=== PATIENT | female | born 1960 | race Caucasian/White ===

== ENCOUNTER 2021-07-22 07:57 | Emergency (ER) | payer MEDICARE, SELFPAY ==
[2021-07-22 09:04] VITALS: BP 126/62; PULSE 81; RESP 16; TEMP 36.4; O2SAT 98; BMI 35.1
--- NOTE | 2021-07-22 09:21 | ED.EYEPROB ---
HPI - Eye Problem General Chief complaint: Eye Problems Stated complaint: Eye swelling Time Seen by Provider: 07/22/21 09:17 Source: patient Mode of arrival: ambulatory Limitations: no limitations History of Present Illness HPI Narrative: 61-year-old female presenting to the ED with complaints of right eyelid redness/swelling/ itchiness for the past 4 days worse today. She reports that she is unsure how she sustained this. She does not wear any contact lenses. She denies any trauma to the eye. She denies anyone else that she knows with similar symptoms. She denies any fevers, chills, dizziness, changes in vision, photophobia, thoughts of foreign body, drainage, pain to the eye or any other symptoms complaints or concerns at this time. chief complaint: eye redness Onset (ago): day(s) (4) Onset description: gradual Duration: constant and progressively worsening Location: right eye Eye Symptoms: redness and itching Place: home Mechanism: none Severity: mild Associated symptoms: none Treatments Prior to Arrival: none Related Data Previous Rx's Medication Instructions Recorded doxycycline monohydrate 100 mg 100 mg PO BID 10 Days #20 cap 07/22/21 capsule erythromycin 5 mg/gram (0.5 %) eye 0.5 inch OPHTHALMIC (EYE) QID 7 07/22/21 ointment Days #3.5 g Allergies Allergy/AdvReac Type Severity Reaction Status Date / Time zolpidem [From Ambien] Allergy Hives Verified 07/22/21 09:03 Review of Systems Review of Systems: Constitutional : No fevers, no chills, No changes in activity, No lethargy, No recent prior head injury, No agitation, No increased fussiness ENT/Mouth : No Ear Pain, No Nasal discharge/drainage Eyes: + Right eyelid swelling /redness / itching, No Vision changes/blurry/decreased vision, No Eye Pain, No Foreign Body, No Photophobia, no discharge, no drainage, no contact lens uses, no recent welding, no bleeding Cardiovascular : No Chest Pain, No SOB Respiratory : No Cough Gastrointestinal : No Nausea, No Vomiting, No abdominal Pain Genitourinary : No Dysuria, No Urinary Frequency, No Urinary Incontinence, No Urgency, No Flank Pain Musculoskeletal : No joint pain, No neck stiffness, No back pain/injury Skin : No lacerations Neuro : No unsteady gait, No Paresthesias, No Loss of Consciousness, No altered mental status, No dizziness, No Headache Denies past medical history of HIV, recent trauma, coagulopathy, recent spinal/ epidural procedure, new medication, URI symptoms, close contacts with similar symptoms, tick bite, or known CO2 exposure. Yes all other systems are reviewed and are negative PMFSH Past Medical History Attestation statement: The following information was validated with the patient. Medical History Bipolar 1 disorder Hypothyroidism Surgical History S/P excision of lipoma Social History Social History Advance Directives: No Advance Directives Information Provided: No Patient : No Physical Exam Vital Signs: Vital Signs: Last Vital Signs Temp 97.6 F 07/22/21 09:04 Pulse 81 07/22/21 09:04 Resp 16 07/22/21 09:04 BP 126/62 07/22/21 09:04 Pulse Ox 98 07/22/21 09:04 BMI result Body Mass Index 35.1 vital signs have been reviewed as normal and appeared to be correct. Blood pressure normal. Heart rate normal. Respiration rate normal. Temperature normal. Oxygen saturation normal. Appearance: Alert. Oriented X3. No acute distress. Head: Normal external exam. Normocephalic. Atraumatic. No Pavon signs noted. No raccoon eyes noted Eyes: PERRLA. EOMI. Conjunctiva are normal. Cornea are normal. Funduscopic exam within normal limits. Sclera normal. left eyelid within normal limits. Right eyelid upper and lower edematous / erythematous consistent with blepharitis. No discharge is noted. No papilledema noted. Anterior chamber normal. No photophobia noted. Not consistent with periorbital cellulitis. Not consistent with orbital cellulitis. ENT: EAC normal. TM's Normal. Pharynx normal. Uvula midline. Moist mucous membranes. Neck: Normal inspection. Neck supple. FROM. No adenopathy. Thyroid Normal. No meningeal signs. No neck mass noted. CVS: Normal heart rate and rhythm. Heart sound normal. No murmurs noted. Pulses normal throughout. Respiratory: No respiratory distress. Painless inspiration. Breath sounds normal. Back: Full range of motion noted. Skin: Skin warm and dry. Normal skin color. Normal skin turgor. No rashes/lesions/lacerations noted. Extremities: No lower extremity edema. Extremities exhibit normal range of motion. Extremities nontender. Neuro: Oriented X 3. No motor deficit. No sensory deficit. Reflexes normal. Course Course Course Narrative: 61-year-old female presenting to the ED with complaints of right eyelid redness/swelling/ itchiness for the past 4 days worse today. She reports that she is unsure how she sustained this. She does not wear any contact lenses. She denies any trauma to the eye. She denies anyone else that she knows with similar symptoms. She denies any fevers, chills, dizziness, changes in vision, photophobia, thoughts of foreign body, drainage, pain to the eye or any other symptoms complaints or concerns at this time. On exam patient is noted to have blepharitis to the right upper and lower eyelid. No signs of trauma. No signs of extraocular movement entrapment. No pain on extraocular movement. Not consistent with periorbital cellulitis. Not consistent with orbital cellulitis. Will DC home with antibiotics and instructions to follow-up with Dr. Vargas the numerical control machine machinist and to return if any new or worsening symptoms and to follow up with primary care provider as well. Patient understands agrees with this plan. MDM - Eye Problem Medical Records Attestation: I reviewed the patient's medical records. Discharge Plan Discharge Clinical Impression: Blepharitis of eyelid of right eye Patient Disposition: Home, Self-Care Instructions: Blepharitis (ED) Prescriptions: New erythromycin 5 mg/gram (0.5 %) ointment 0.5 inch ophthalmic (eye) QID 7 Days Qty: 3.5 0RF doxycycline monohydrate 100 mg capsule 100 mg PO BID 10 Days Qty: 20 0RF Referrals: Stef Vargas [Physician] - 2 days Print Language: Russian
== END 2021-07-22 09:39 | disposition home or self-care (01) ==
PROVIDERS: Emergency Provider Student in an Organized Health Care Education/Training Program
DX: H01.00A Unspecified blepharitis right eye, upper and lower eyelids (principal)
CPT/HCPCS: 99283

== ENCOUNTER 2022-01-14 09:50 | Outpatient (REF) | payer OTHER, SELFPAY ==
[2022-01-14 11:09] LABS: MANUAL DIFF FLAG NO
[2022-01-14 11:17] LABS: Basophils Absolute Auto 0.1 X10*3/uL (0.0-0.2); Basophils Percent Auto 0.9 % (0-2); Eosinophils Absolute Auto 0.2 X10*3/uL (0.0-0.4); Eosinophils Percent Auto 2.8 % (0-4); Hematocrit 41.4 % (37.0-47.0); Hemoglobin 13.7 g/dl (12.0-16.0); Imm Gran Abs Auto 0.02 X10*3/uL (0.00-0.03); Imm Gran Pct Auto 0.3 % (0.0-0.4); Lymphocytes Absolute Auto 2.4 X10*3/uL (1.2-4.9); Lymphocytes Percent Auto 40.5 % (20-40); Mean Corpuscular HGB Conc 33.1 g/dl (31.0-35.0); Mean Corpuscular Hemoglobin 29.1 pg (27.0-33.0); Mean Corpuscular Volume 88.1 fL (80.0-98.0); Mean Platelet Volume 11.1 fL (9.4-12.3); Monocytes Absolute Auto 0.5 X10*3/uL (0.1-1.2); Monocytes Percent Auto 8.3 % (2-11); Neutrophils Absolute Auto 2.7 x10*3/uL (2.0-8.3); Neutrophils Percent Auto 47.2 % (45-73); Platelet Count 238 X10*3/uL (160-400); White Blood Count 5.8 X10*3/uL (4.8-10.8)
[2022-01-14 12:02] LABS: Alanine Aminotransferase 32 U/L (0-31); Albumin Level 4.6 g/dL (3.5-5.0); Alkaline Phosphatase 118 U/L (39-117); Anion Gap 15 (12-20); Aspartate Amino Transferase 22 U/L (5-31); Bilirubin Total 0.2 mg/dL (0.0-1.0); Blood Urea Nitrogen 17 mg/dL (9-16); Calcium 9.5 mg/dL (8.4-10.2); Carbon Dioxide 26 mmol/L (22-29); Chloride 103 mmol/L (96-108); Cholesterol 255 mg/dL; Estimated Glomerular Filt Rate > 60; Glucose Fasting 94 mg/dL (60-99); HDL Cholesterol 66 mg/dL; LDL Cholesterol Calculated 155 mg/dl; Potassium 4.3 mmol/L (3.3-5.1); Sodium 140 mmol/L (135-145); Total Protein 7.6 g/dL (6.5-8.0); Triglycerides 174 mg/dL
[2022-01-14 12:27] LABS: Free T4 (Free Thyroxine) 0.84 ng/dL (0.71-1.85); Thyroid Stimulating Hormone 2.54 uIU/mL (0.32-4.0)
[2022-01-14 12:58] LABS: Carbamazepine Tegretol 8.9 mcg/mL (5.0-12.0)
[2022-01-15 13:06] LABS: Triiodothyronine T3 Total 72 ng/dL (76-181)
== END 2022-01-14 09:51 | disposition home or self-care (01) ==
LOC: HO.WFDLDS 09:50
PROVIDERS: Visit Provider Family Medicine
DX: Z00.00 Encounter for general adult medical examination without abnormal findings (principal); E55.9 Vitamin D deficiency, unspecified; E03.9 Hypothyroidism, unspecified; F31.9 Bipolar disorder, unspecified
CPT/HCPCS: 36415; 80053; 80061; 80156; 82306; 84439; 84443; 84480; 85025

== ENCOUNTER 2022-04-21 13:19 | Outpatient (REF) | payer OTHER, SELFPAY ==
--- NOTE | ~2022-04-21 | MM_ITS ---
EXAMINATION: MM SCREENING DIGITAL BREAST TOMOSYNTHESIS, BILATERAL CLINICAL INFORMATION: Screening. Asymptomatic. The lifetime risk of breast cancer based on the Tyrer-Cuzick Model is 8.5%. COMPARISON: Mammography: March 22, 2020 TECHNIQUE: Digital breast tomosynthesis is performed in both the craniocaudal and mediolateral oblique views along with computer-aided detection (CAD). Synthesized 2D images are generated from the tomosynthesis. FINDINGS: There are scattered areas of fibroglandular density (ACR BI-RADS breast composition Category b). There are no significant masses, abnormal calcifications, or other abnormalities. There is stable nodular densities present. MM/MM tomosynthesis screening BI IMPRESSION: No significant changes from prior exam. ASSESSMENT: BI-RADS 1: Negative RECOMMENDATION: Routine annual mammography screening. This patient's information was entered into a reminder system with a target due date for their next mammogram.
--- NOTE | ~2022-04-21 | MM_ITS ---
EXAMINATION: BONE DENSITOMETRY CLINICAL INDICATION: Encounter for screening for osteoporosis. COMPARISON: None (current study represents initial baseline exam). TECHNIQUE: Using a [employer] DXA System (software version: 13.1) manufactured by [employer], dual-energy x-ray absorptiometry was performed of the lumbar spine and left hip. The images are of good technical quality. Summary results are attached. FINDINGS: AP SPINE L1-L4: BMD 1.046 g/cm2, Z-score -0.8, T-score -1.1, osteopenia. LEFT FEMUR, NECK: BMD 0.905 g/cm2, Z-score -0.3, T-score -1.0, normal. LEFT FEMUR, TOTAL: BMD 1.011 g/cm2, Z-score 0.3, T-score 0.0, normal. IDENTIFIED RISK FACTORS: Menopause, history of fracture (adult). HISTORY OF FRACTURE: Forearm. MEDICATIONS: Calcium supplements or multivitamin, vitamin D. MM/XR DEXA axial skeleton IMPRESSION: 1. DIAGNOSIS: Osteopenia based on the lowest T-score value of -1.1 in the lumbar spine applying World Health Organization criteria. 2. 10-YEAR FRACTURE RISK PREDICTION, FRAX: Major osteoporotic fracture (clinical spine, forearm, hip or shoulder) 11.0%. Hip fracture 0.6%. 3. Treatment Recommendations: NOF guidelines recommend consideration for treatment in postmenopausal women and men age 50 and older presenting with the following: -A hip or vertebral (clinical or morphometric) fracture. -T-score less than or equal to -2.5 at the femoral neck or spine after appropriate evaluation to exclude secondary causes. -Low bone mass at the hip or spine and a 10-year fracture probability by FRAX of greater than or equal to 3% for hip fracture or greater than or equal to 20% for major osteoporotic fracture based on the [place] adapted WHO algorithm. 4. Other Recommendations: All treatment decisions require clinical judgment and consideration of individual patient factors, including patient preferences, comorbidities, previous drug use, risk factors not captured in the FRAX model (e.g. frailty, falls, vitamin D deficiency, increased bone turnover, interval significant decline in bone density) and possible under or overestimation of fracture risk by FRAX. Additional medical evaluation for secondary cause of low bone mineral density may be appropriate. FUTURE SCAN RECOMMENDATION: People with diagnosed cases of osteoporosis or at high risk for fracture should have regular bone mineral density tests. For patients eligible for Medicare, routine testing is allowed once every 2 years. The testing frequency can be increased to one year for patients who have rapidly progressing disease, those who are receiving or discontinuing medical therapy to restore bone mass, or have additional risk factors.
== END 2022-04-21 13:20 | disposition home or self-care (01) ==
LOC: HO.MAMMO 13:19
PROVIDERS: PCP Family Medicine; Visit Provider Family Medicine
DX: Z12.31 Encounter for screening mammogram for malignant neoplasm of breast (principal); Z13.820 Encounter for screening for osteoporosis; Z78.0 Asymptomatic menopausal state
CPT/HCPCS: 77063; 77067; 77080

== ENCOUNTER 2022-06-24 08:26 | Outpatient (REF) | payer OTHER, SELFPAY ==
[2022-06-24 12:20] LABS: Alanine Aminotransferase 31 U/L (0-31); Albumin Level 4.4 g/dL (3.5-5.0); Alkaline Phosphatase 125 U/L (39-117); Anion Gap 15 (12-20); Aspartate Amino Transferase 22 U/L (5-31); Bilirubin Total 0.4 mg/dL (0.0-1.0); Blood Urea Nitrogen 15 mg/dL (9-16); Calcium 9.5 mg/dL (8.4-10.2); Carbon Dioxide 26 mmol/L (22-29); Chloride 105 mmol/L (96-108); Cholesterol 244 mg/dL; Estimated Glomerular Filt Rate > 60; Glucose Random 88 mg/dL (60-115); HDL Cholesterol 70 mg/dL; LDL Cholesterol Calculated 150 mg/dl; Potassium 4.1 mmol/L (3.3-5.1); Sodium 142 mmol/L (135-145); Total Protein 7.2 g/dL (6.5-8.0); Triglycerides 122 mg/dL
[2022-06-24 13:50] LABS: Free T4 (Free Thyroxine) 0.75 ng/dL (0.71-1.85); Thyroid Stimulating Hormone 3.35 uIU/mL (0.32-4.0); Vitamin D 25-OH Total 28.5 ng/mL (>30)
[2022-06-25 05:09] LABS: Triiodothyronine T3 Total 77 ng/dL (76-181)
== END 2022-06-24 08:27 | disposition home or self-care (01) ==
LOC: HO.WFDLDS 08:26
PROVIDERS: Visit Provider Family Medicine
DX: Z00.00 Encounter for general adult medical examination without abnormal findings (principal); E03.9 Hypothyroidism, unspecified; R74.01 Elevation of levels of liver transaminase levels; E78.5 Hyperlipidemia, unspecified; E55.9 Vitamin D deficiency, unspecified
CPT/HCPCS: 36415; 80053; 80061; 82306; 84439; 84443; 84480

== ENCOUNTER 2022-11-27 11:32 | Outpatient (AMB) | payer OTHER, SELFPAY ==
--- NOTE | 2022-11-27 11:37 | MHC.PC.OV ---
Vital Signs 11/27/22 11:40 Height 5 ft 2 in Weight 202 lb 1 oz BMI 37.0 BP 120/74 Blood Pressure Location Lt brachial Position Sitting Pulse 78 Pulse Source Pulse Oximeter Pulse Oximetry (%) 98 Oxygen Delivery Method Room Air Intake Visit Reasons: f/u chronic conditions Intake Note: Patient is here for a follow up visit on choric conditions. Allergies zolpidem [From Ambien] Allergy (Verified 11/27/22 11:41) Hives Medication List - Last Reconciled 11/27/22 by George Vázquez MD bupropion HCl 300 mg PO DAILY PRN bupropion HCl 150 mg PO QAM carbamazepine ER 0 mg PO DAILY PRN carbamazepine ER 400 mg PO BID cholecalciferol (vitamin D3) 50 mcg PO DAILY erythromycin 0.5 inches ophthalmic (eye) TID 7 days levothyroxine 88 mcg PO DAILY 90 days venlafaxine ER 225 mg PO DAILY Tobacco use date assessed: 11/27/22 Dental Screening Dental Screen Date: 11/27/22 Did you have a dental visit in the last 12 months?: No Did you have a dental problem in the last 6 months where you did not have access to dental care?: No Was dental information given to patient?: No HPI f/u chronic conditions HPI Details 62 y/o female presents to f/u chronic conditions. Pt continues to work on her weight. She is planning to join a program for weight and eating. She had questions about a letter - hx of bipolar disorder. [facility] Medical History Bipolar 1 disorder Hypothyroidism Surgical History S/P excision of lipoma Social History Housing: Apartment Patient Tobacco Use Status: Never used Tobacco e-Cigarette/Vaping Use: Never Used Second Hand Smoke Exposure: No service: No Current occupational status: disabled Current occupational exposures/hazards: No Questionnaire PHQ-9 Over the last 2 weeks, how often have you been bothered by any of the following problems? 1. Little interest or pleasure in doing things: nearly every day 2. Feeling down, depressed, or hopeless: not at all 3. Trouble falling or staying asleep, or sleeping too much: several days 4. Feeling tired or having little energy: nearly every day 5. Poor appetite or overeating: nearly every day 6. Feeling bad about yourself - or that you are a failure or have let yourself or your family down: not at all 7. Trouble concentrating on things, such as reading the newspaper or watching television: nearly every day 8. Moving or speaking so slowly that other people could have noticed. Or the opposite - being so fidgety or restless that you have been moving around a lot more than usual: not at all 9. Thoughts that you would be better off or of hurting yourself in some way: not at all Total score: 13 Source: Developed by Drs. Marcos Barclay, Billie Stewart, Jordin Hutchison and colleagues, with an educational lauren from [employer]. Thrive Questionnaire Date Thrive assessed: 06/09/22 I am a: Patient What is your living situation today?: I have a steady place to live Within the past 12 months, did the food you bought not last and you didn't have the money to get more?: Never true Within the past 12 months, did you worry whether your food would run out before you got money to buy more?: Never true Do you have trouble paying for medicines?: No Do you have trouble getting transportation to medical appointments?: No Do you have trouble paying your heating and electricity bill?: No Do you have trouble taking care of your child, family member or friend?: No Do you have trouble with day-to-day activities such as bathing, preparing meals, shopping, managing finances, etc.?: Yes Are you currently unemployed and looking for a job?: No Are you interested in more education?: No AUDIT C Alcohol Use Questionnaire (AUDIT-C) 1. How often do you have a drink containing alcohol?: Monthly or less 2. How many drinks containing alcohol do you have on a typical day when you are drinking?: 1 or 2 3. How often do you have six or more drinks on one occasion?: Never Total Score: 1 VIRGINIA-7 AMB Questionnaire VIRGINIA-7 Date VIRGINIA - 7 assessed: 06/09/22 Feeling nervous, anxious, or on edge: 0 = Not at all Not being able to stop or control worryin = Not at all Worrying too much about different things: 0 = Not at all Trouble relaxin = Not at all Being so restless that it is hard to sit still: 0 = Not at all Becoming easily annoyed or irritable: 0 = Not at all Feeling afraid as if something awful might happen: 0 = Not at all Total [place]-7 score (0-4 normal; 5-9 mild; 10-14 moderate; 15-21 severe): 0 Source: Developed by Drs. Marcos Barclay, Billie Stewart, Jordin Hutchison and colleagues, with an educational lauren from [employer]. Physical exam (Primary Care) Vital Signs: Last Vital Signs Pulse 78 11/27/22 11:40 BP 120/74 11/27/22 11:40 Pulse Ox 98 11/27/22 11:40 Oxygen Delivery Method Room Air 11/27/22 11:40 BMI result Body Mass Index 37.0 Tobacco/Smoking Status: Tobacco use Status Tobacco use date assessed 11/27/22 11/27/22 11:44 Patient Tobacco Use Status Never used Tobacco 11/27/22 11:39 e-Cigarette/Vaping Use Never Used 11/27/22 11:39 PHQ-9: PHQ-9 Score PHQ-9: Total score 13 11/27/22 11:52 Thrive Assessment: Date of Thrive Assessment Date Thrive assessed 06/09/22 11/27/22 11:39 Assessment and Plan Assessment & Plan (1) Fatigue: Code(s): R53.83 - Other fatigue Plan: Check labs (2) Osteopenia: Code(s): M85.80 - Other specified disorders of bone density and structure, unspecified site Plan: Continue weight-bearing exercise Patient will require additional VISION [employer]ER hours for assistance during exercise - wrote a letter to that effect (3) Bipolar 1 disorder: Code(s): F31.9 - Bipolar disorder, unspecified Plan: Check labs Orders: Orders Lipid Panel Today E78.5 - Hyperlipidemia, unspecified, Z00.00 - Encounter for general adult medical examination without abnormal findings Comprehensive [place]. Panel Fast Today R74.01 - Elevation of levels of liver transaminase levels, Z00.00 - Encounter for general adult medical examination without abnormal findings Triiodothyronine T3 Total Today E03.9 - Hypothyroidism, unspecified Free T4 (Free Thyroxine) Today E03.9 - Hypothyroidism, unspecified Thyroid Stimulating Hormone Today E03.9 - Hypothyroidism, unspecified Vitamin B12 and Folate Today E53.8 - Deficiency of other specified B group vitamins, R53.83 - Other fatigue Carbamazepine Tegretol Today F31.9 - Bipolar disorder, unspecified Coding Level of Care Code Est Pt Level 4 (82238) Diagnoses Fatigue R53.83 Osteopenia M85.80 Bipolar 1 disorder F31.9
[2022-11-27 11:40] VITALS: BP 120/74; PULSE 78; O2SAT 98; BMI 37.0
== END 2022-11-27 13:17 | disposition home or self-care (01) ==
PROVIDERS: Visit Provider Family Medicine
DX: R53.83 Other fatigue (principal); M85.80 Other specified disorders of bone density and structure, unspecified site; F31.9 Bipolar disorder, unspecified
CPT/HCPCS: 99214

== ENCOUNTER 2022-12-30 08:54 | Outpatient (REF) | payer OTHER, SELFPAY ==
[2022-12-30 12:01] LABS: Carbamazepine Tegretol 8.7 mcg/mL (5.0-12.0)
[2022-12-30 12:22] LABS: Folate 14.6 ng/mL (> or = 4.0); Vitamin B12 496 pg/mL (200-900)
[2022-12-30 12:23] LABS: Alanine Aminotransferase 22 U/L (0-31); Albumin Level 4.3 g/dL (3.5-5.0); Alkaline Phosphatase 100 U/L (39-117); Anion Gap 12 (12-20); Aspartate Amino Transferase 19 U/L (5-31); Bilirubin Total 0.3 mg/dL (0.0-1.0); Blood Urea Nitrogen 16 mg/dL (9-16); Calcium 9.4 mg/dL (8.4-10.2); Carbon Dioxide 28 mmol/L (22-29); Chloride 105 mmol/L (96-108); Cholesterol 224 mg/dL; Estimated Glomerular Filt Rate > 60; Free T4 (Free Thyroxine) 0.76 ng/dL (0.71-1.85); Glucose Fasting 101 mg/dL (60-99); HDL Cholesterol 66 mg/dL; LDL Cholesterol Calculated 125 mg/dl; Potassium 3.8 mmol/L (3.3-5.1); Sodium 141 mmol/L (135-145); Thyroid Stimulating Hormone 2.46 uIU/mL (0.32-4.0); Total Protein 7.5 g/dL (6.5-8.0); Triglycerides 165 mg/dL
[2022-12-30 14:48] LABS: Appearance Urine Cloudy; Color Urine Yellow; Glucose Urine UA Negative (Negative); Leukocyte Esterase Urine Moderate (2+) (Negative); Nitrite Urine Negative (Negative); UMIC TRIGGER UA YES; Urine Blood Negative (Negative); Urine Ketones Negative (Negative); Urine Protein Trace mg/dL (Neg-Trace)
[2022-12-30 14:53] LABS: Bacteria Urine 2+ (None Seen); Hyaline Casts Urine 0-2 /LPF (0-2); RBC Urine 0-2 /HPF (0-2); WBC Urine 21-50 /HPF (0-5)
[2022-12-31 06:23] LABS: Triiodothyronine T3 Total 84 ng/dL (76-181)
== END 2022-12-30 08:55 | disposition home or self-care (01) ==
LOC: HO.WFDLDS 08:54
PROVIDERS: Visit Provider Family Medicine
DX: Z00.00 Encounter for general adult medical examination without abnormal findings (principal); E53.8 Deficiency of other specified B group vitamins; R53.83 Other fatigue; E03.9 Hypothyroidism, unspecified; E78.5 Hyperlipidemia, unspecified; R74.01 Elevation of levels of liver transaminase levels; F31.9 Bipolar disorder, unspecified
CPT/HCPCS: 36415; 80053; 80061; 80156; 81001; 82607; 82746; 84439; 84443; 84480

== ENCOUNTER 2023-01-01 11:25 | Outpatient (AMB) | payer OTHER, SELFPAY ==
--- NOTE | 2023-01-01 11:32 | A.OFFPC_ITS ---
Vital Signs 01/01/23 11:35 Height 5 ft 2 in Weight 202 lb BMI 36.9 BP 112/74 Blood Pressure Location Rt brachial Position Sitting Respiration 14 Pulse 72 Pulse Source Pulse Oximeter Temp 96.6 F L Temp Source Temporal Artery Scan Pulse Oximetry (%) 96 Oxygen Delivery Method Room Air Intake Visit Reasons: f/u labs Intake Note: Patient is here today to follow up on her labs drawn on 12/30/2022. Patient has a fasting glucose result of 101. A1C completed today with a result of . 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: No Accompanied by: Self / Same As Patient Allergies zolpidem [From Ambien] Allergy (Verified 01/01/23 11:40) Hives Medication List - Last Reconciled 01/01/23 by George Vázquez MD bupropion HCl 300 mg PO DAILY PRN bupropion HCl 150 mg PO QAM carbamazepine ER 0 mg PO DAILY PRN carbamazepine ER 400 mg PO BID cholecalciferol (vitamin D3) 50 mcg PO DAILY erythromycin 0.5 inches ophthalmic (eye) TID 7 days levothyroxine 88 mcg PO DAILY 90 days venlafaxine ER 225 mg PO DAILY Tobacco use date assessed: 11/27/22 Dental Screening Dental Screen Date: 01/01/23 Did you have a dental visit in the last 12 months?: No Did you have a dental problem in the last 6 months where you did not have access to dental care?: No Was dental information given to patient?: Patient has dentist HPI f/u labs HPI Details 62 y/o female presents to f/u labs. Labs were drawn 12/30/22. Reviewed labs with pt. Elevated fasting glucose of 101. A1c today 01/01/23 is 5.4%. Triglycerides 165. TC 224. LDL improved from 150 to 125. HDL 66. 2+ urine bacteria seen, elevated urine WBC. She denies any urinary symptoms. [facility] Medical History Bipolar 1 disorder Hypothyroidism Surgical History S/P excision of lipoma Social History Housing: Apartment Patient Tobacco Use Status: Never used Tobacco e-Cigarette/Vaping Use: Never Used Second Hand Smoke Exposure: No service: No Current occupational status: disabled Current occupational exposures/hazards: No Cognitive needs: No Hearing needs: No Vision needs: Yes Questionnaire Thrive Questionnaire Date Thrive assessed: 06/09/22 VIRGINIA-7 AMB Questionnaire VIRGINIA-7 Date [place]IR[place] - 7 assessed: 06/09/22 Source: Developed by Drs. Marcos Barclay, Billie Stewart, Jordin Hutchison and colleagues, with an educational lauren from [employer]. Physical exam (Primary Care) Vital Signs: Last Vital Signs Temp 96.6 F L 01/01/23 11:35 Pulse 72 01/01/23 11:35 Resp 14 01/01/23 11:35 BP 112/74 01/01/23 11:35 Pulse Ox 96 01/01/23 11:35 Oxygen Delivery Method Room Air 01/01/23 11:35 BMI result Body Mass Index 36.9 Tobacco/Smoking Status: Tobacco use Status Tobacco use date assessed 11/27/22 01/01/23 11:33 Patient Tobacco Use Status Never used Tobacco 01/01/23 11:33 e-Cigarette/Vaping Use Never Used 01/01/23 11:33 Thrive Assessment: Date of Thrive Assessment Date Thrive assessed 06/09/22 01/01/23 11:33 Assessment and Plan Assessment & Plan (1) Elevated fasting glucose: Code(s): R73.01 - Impaired fasting glucose Plan: Mildly elevated fasting blood sugar and her A1c was 5.4% which is towards top of normal range Encouraged a diet lower in sugars and starches Encouraged ongoing diet with goal of weight loss Will follow this (2) Bacteria in urine: Code(s): R82.71 - Bacteriuria Plan: No symptoms Encouraged good hydration She can try cranberry capsules (3) Hyperlipidemia: Code(s): E78.5 - Hyperlipidemia, unspecified Plan: Significant improvement in LDL cholesterol and her HDL cholesterol is desirably high. Good HDL ratios. Triglycerides are elevated and she continues to work on a diet lower in saturated fats and cholesterol as well as lower in her blood sugar. (4) Elevated alanine aminotransferase (ALT) level: Code(s): R74.01 - Elevation of levels of liver transaminase levels Plan: Liver enzymes are within normal limits Orders: Orders Vitamin B12 and Folate Today E53.8 - Deficiency of other specified B group vitamins Comprehensive [place]. Panel Fast Today Z00.00 - Encounter for general adult medical examination without abnormal findings Lipid Panel Today Z00.00 - Encounter for general adult medical examination without abnormal findings Triiodothyronine T3 Total Today E03.9 - Hypothyroidism, unspecified Free T4 (Free Thyroxine) Today E03.9 - Hypothyroidism, unspecified Thyroid Stimulating Hormone Today E03.9 - Hypothyroidism, unspecified Microalbumin, Random (w Creat) Today I10 - Essential (primary) hypertension Complete Blood Count Auto Diff Today Z00.00 - Encounter for general adult medical examination without abnormal findings Carbamazepine Tegretol Today F31.9 - Bipolar disorder, unspecified UA and rflx microscopic Today Z00.00 - Encounter for general adult medical examination without abnormal findings Coding Level of Care Code Est Pt Level 4 (85551) Diagnoses Elevated fasting glucose R73.01 Bacteria in urine R82.71 Hyperlipidemia E78.5 Elevated alanine aminotransferase (ALT) level R74.01
[2023-01-01 11:35] VITALS: BP 112/74; PULSE 72; RESP 14; TEMP 35.9; O2SAT 96; BMI 36.9
== END 2023-01-01 12:02 | disposition home or self-care (01) ==
PROVIDERS: PCP Family Medicine; Visit Provider Family Medicine
DX: R73.01 Impaired fasting glucose (principal); R82.71 Bacteriuria; E78.5 Hyperlipidemia, unspecified; R74.01 Elevation of levels of liver transaminase levels
CPT/HCPCS: 99214

== ENCOUNTER 2024-09-13 13:06 | Outpatient (AMB) | payer OTHER, SELFPAY ==
[2024-09-13 13:17] VITALS: BP 110/70; PULSE 70; RESP 20; TEMP 36.9; O2SAT 98; BMI 36.0
--- NOTE | 2024-09-13 13:17 | MHC.OFFWIV ---
Intake Vital Signs 09/13/24 13:17 Height 5 ft 2 in Weight 197 lb BMI 36.0 BP 110/70 Blood Pressure Location Rt brachial Position Sitting Respiration 20 Pulse 70 Pulse Source Pulse Oximeter Temp 98.5 F Temp Source Oral Pulse Oximetry (%) 98 Oxygen Delivery Method Room Air Intake Visit Reasons: EP Pain on side of RT breast Intake Note: Pt is here today for a walk in visit. Pt c/o R breast for 7 days now. Patient Tobacco Use Status: Never used Tobacco Allergies zolpidem [From Ambien] Allergy (Verified 09/13/24 13:23) Hives Do you need a note to return to daycare/school/sports/work: No HPI HPI Comments History of Present Illness Details History of Present Illness - The patient is a 64-year-old female with a past medical history of hypothyroidism and bipolar 1 presenting with right chest pain. 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 - Patient states she can not reproduce the pain when she pushes on the right breast or her right side. - She last had a mammogram three years ago despite prior advice to repeat it a year ago by her PCP. - No personal or family history of breast cancer noted. - No shortness of breath, dizziness, chest pain, back pain, abdominal pain, sweating, arm weakness or tingling or pain or neck pain. - patient denies any new workout routines or injury to the area or over use of her right side. - patient states Dr. Singh on it was no longer her primary care doctor, she does see a primary care doctor in [place]. Physical Exam General: Cooperative, healthy appearing, comfortable, no acute distress and well developed Orientation: Patient oriented x3 Limitations: No limitations Head: Normal to inspection Ears: Hearing grossly normal bilaterally Nose: Normal External nose present Face and sinus: Normal facial exam Eyes: Appearance normal, both eyes and all related structures Neck: Normal visual inspection and Yes full ROM Chest: normal inspection of the right breast, normal palpation of the right breast, no discharge from the nipple, no skin changes Respiratory: Normal respiratory effort and able to speak in complete sentences. Cardiovascular: Regular rate and rhythm. Normal S1 and S2 GI: soft, no TTP, negative Moya's Skin: No rashes or lesions noted Neuro: Patient oriented x3 Extremities: Normal to inspection [facility] Medical History Bipolar 1 disorder Hypothyroidism Surgical History S/P excision of lipoma Social History Housing: Apartment Patient Tobacco Use Status: Never used Tobacco e-Cigarette/Vaping Use: Never Used Second Hand Smoke Exposure: No service: No Current occupational status: disabled Current occupational exposures/hazards: No Cognitive needs: No Hearing needs: No Vision needs: Yes Review of Systems Const All systems reviewed & are unremarkable except as noted in HPI and below Physical Exam Vital Signs: Last Vital Signs Temp 98.5 F 09/13/24 13:17 Pulse 70 09/13/24 13:17 Resp 20 09/13/24 13:17 BP 110/70 09/13/24 13:17 Pulse Ox 98 09/13/24 13:17 Oxygen Delivery Method Room Air 09/13/24 13:17 BMI result Body Mass Index 36.0 Office Procedures EKG [id number], Complete Assessment & Plan Assessment & Plan (1) Breast pain, right: Code(s): N64.4 - Mastodynia Plan: Vital signs are stable, patient is well-appearing. Right sided chest pain that radiates to her central chest for 1 week after a very stressful interaction. Patient has had a very stressful week as well as she is getting rid of her dog. Nonreproducible and breast exam and abdominal exam were completely normal. An EKG was performed during the visit to exclude cardiac causes. No prior to compare to but EKG did have T wave depressions in V1 through V3. Patient declined ambulance and states that her TELEPHONE MESSENGER is here and she will drive her to the emergency department for further workup. Sent tiger text with expect/patient information and the EKG to the triage provider at the [facility] ED. Patient was informed and verbally consented to the use of an ambient scribe for clinic note documentation during this visit. Coding Level of Care Code New Pt Level 5 (20407) Diagnoses Breast pain, right N64.4 CPT Codes EKG - CPT: 41834-[id number], Complete ([id number])
--- OUTSIDE RECORDS SUMMARY | 2024-09-13 14:25 | XMS_ITS | Data Portability ---
Author Organization [facility], , [facility] Address [address] [place] [address] Care Team Providers Care Purchasing Associate Name Role Phone PRESLEY RAMOS Primary Care Provider [phone] Assessment Encounter Date Assessment Date Assessment LastModified by Organization Details LastModified Time 03/29/2019 03/29/2019 RTC 1-2 yr CEE or prn jmandile Not available 03/30/2019 09:07:20 Plan of Treatment Reminders Order Date Submit Date Provider Last Modified By Organization Details Last Modified Time Details Appointments New Patient-3 0 2024 02:30P Breezy Ramos NP Not available Not available Not available Lab TSH, serum or plasma 2018 019 [facility], [address] [place] [address], [address], 02/24/2019 13:08:59 HIV (1+2) antibodie s, EIA, serum, reflex HIV-1 western blot (WB) 2018 019 [facility], [address] [place] [address], [address], 06/24/2018 00:23:27 RPR (rapid plasma reagin), serum 2018 019 [facility], [address] [place] [address], [address], 06/23/2018 15:31:18 CT + NG DNA, PCR, unspecifi ed specimen 2018 019 [facility], [address] [place] [address], [address], 06/30/2018 15:19:21 Referral plastic surgeon referral 2018 [email or web address] Tomi Gomez MD, [address] [place], [address], 04/05/2019 15:53:20 Procedures None recorded. Surgeries None recorded. Imaging MAMMO, screening , tomosynth esis, bilateral 2018 [facility] (Imaging), [address], [place], [address], 03/10/2019 04:58:11 Medication Orders Systane (propylen e glycol) 0.4 %-0.3 % eye drops 2018 INTERFACE [facility], [address] [place] [address], [address], 03/29/2019 11:28:28 levothyro xine 50 mcg tablet 2018 019 cnormandin 2 [facility], [address] [place] [address], [address], 12/01/2018 17:44:12 Drysol 20 % topical solution 2018 019 janna [facility], [address] [place] [address], [address], 02/23/2019 15:58:08 Patient TargetsNo targets recorded. 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 There is no labor atory evide nce of HIV infec tion. PLEAS E NOTE: This infor matio n has been discl osed to you from recor maikol whose confi denti ality may be prote cted by state law. If your state requi res such prote ction , then the state law prohi bits you from martha estrada er discl osure of the infor matio n witho ut the speci fic writt en conse nt of the perso n to whom it perta ins, or as other cherry permi tted by law. A gener al autho rizat ion for the relea se of medic al or other infor matio n is NOT suffi cient for this purpo se. For addit ional infor matio n pleas e refer to http: //[facility] cathunter n.que stdia gnost ics.c om/fa q/FAQ 106 (This link is being provi ded for infor matio nal/ educa césar l purpo ses only. ) The perfo rmanc e of this assay has not been clini rio valid ated in patie nts less than 2 years old. Not Available [facility] [address], [place], [address], 06/24/2018 00:23:27 06/23/19 19 06/30/2018 CT + NG DNA, PCR, unspe cifie d speci men aoe-urine URINE Not Available [address], [address], 06/30/2018 15:19:21 06/23/19 19 06/30/2018 CT + NG DNA, PCR, unspe cifie d speci men N. gonorrhoeae Neg negati ve Not Available [address], [address], 06/30/2018 15:19:21 06/23/19 19 06/30/2018 CT + NG DNA, PCR, unspe cifie d speci men C. trachomatis Neg negati ve Not Available [address], [address], 06/30/2018 15:19:21 11/12/19 19 11/11/2018 CBC WBC 5.6 K/? ? ?L 4.0-10 .0 Not Available [address], [address], 11/11/2018 14:38:42 11/12/1911/11/2018 CBC RBC 4.61 M/? ? ?L 3.93-5 .22 Not Available [address], [address], 11/11/2018 14:38:42 11/12/1911/11/2018 CBC HGB 13.3 g/dL 11.2-1 5.7 Not Available [address], [address], 11/11/2018 14:38:42 11/12/1911/11/2018 CBC HCT 40.6 % 34.1-4 4.9 Not Available [address], [address], 11/11/2018 14:38:42 11/12/1911/11/2018 CBC MCV 88.1 fL 79.4-9 4.8 Not Available [address], [address], 11/11/2018 14:38:42 11/12/1911/11/2018 CBC MCH 28.9 pg 25.6-3 2.2 Not Available [address], [address], 11/11/2018 14:38:42 11/12/1911/11/2018 CBC MCHC 32.8 g/dL 32.2-3 5.5 Not Available [address], [address], 11/11/2018 14:38:42 11/12/19 19 11/11/2018 CBC plt 240 K/? ? ?L 182-36 9 Not Available [address], [address], 11/11/2018 14:38:42 11/12/1911/11/2018 CBC MPV 11.4 fL 9.4-12 .3 Not Available [address], [address], 11/11/2018 14:38:42 11/12/1911/11/2018 CBC neut% 45.0 % 34.0-7 1.1 Not Available [address], [address], 11/11/2018 14:38:42 11/12/1911/11/2018 CBC neut# 2.5 1.6-6. 1 Not Available [address], [address], 11/11/2018 14:38:42 11/12/1911/11/2018 CBC lymph % 39.9 % 19.3-5 1.7 Not Available [address], [address], 11/11/2018 14:38:42 11/12/1911/11/2018 CBC lymph # 2.2 K/? ? ?L 1.2-3. 7 Not Available [address], [address], 11/11/2018 14:38:42 11/12/1911/11/2018 CBC mono% 8.9 % 4.7-12 .5 Not Available [address], [address], 11/11/2018 14:38:42 11/12/1911/11/2018 CBC mono# 0.5 0.2-0. 6 Not Available [address], [address], 11/11/2018 14:38:42 11/12/1911/11/2018 CBC eo% 4.1 % 0.7-5. 8 Not Available [address], [address], 11/11/2018 14:38:42 11/12/1911/11/2018 CBC eo# 0.2 0.0-0. 4 Not Available [address], [address], 11/11/2018 14:38:42 11/12/1911/11/2018 CBC baso% 1.4 % 0.1-1. 2 high Not Available [address], [address], 11/11/2018 14:38:42 11/12/1911/11/2018 CBC baso# 0.1 0.0-0. 1 high Not Available [address], [address], 11/11/2018 14:38:42 11/12/1911/11/2018 CBC RDW-CV 12.5 % 11.7-1 4.4 Not Available [address], [address], 11/11/2018 14:38:42 11/12/1911/11/2018 CBC Ig% 0.7 % 0.0-0. 4 high Ig % >0.5 Indic ates possi ble Left Shift Not Available [address], [address], 11/11/2018 14:38:42 11/12/1911/11/2018 CBC Ig# 0.04 0.00-0 .03 high Not Available [address], [address], 11/11/2018 14:38:42 11/12/1911/11/2018 CBC NRBC% 0.0 % 0.0-0. 2 Not Available [address], [address], 11/11/2018 14:38:42 11/12/1911/11/2018 CBC NRBC# 0.00 0.00-0 .01 Not Available [address], [address], 11/11/2018 14:38:42 11/12/1911/11/2018 T4, free, serum free T4 0.49 NG/dL 0.75-1 .54 low Not Available [address], [address], 11/11/2018 15:54:51 11/12/1911/11/2018 CMP, serum or plasm a glucose 89 mg/dL 70-100 Not Available [address], [address], 11/11/2018 16:04:00 11/12/1911/11/2018 CMP, serum or plasm a BUN 13 mg/dL 7-18 Not Available [address], [address], 11/11/2018 16:04:00 11/12/1911/11/2018 CMP, serum or plasm a creatinine 0.8 mg/dL 0.8-1. 3 Not Available [address], [address], 11/11/2018 16:04:00 11/12/1911/11/2018 CMP, serum or plasm a B/C 16.3 ratio Not Available [address], [address], 11/11/2018 16:04:00 11/12/19 19 11/11/2018 CMP, serum or plasm a GFR -non 83.1 mL/mi n Recom ranjana d GFR by the Natio nal Kidne y Found ation >60 mL/mi n/1.7 3m2 - Kate l <60 mL/mi n/1.7 3m2 - Chron ic Kidne y Disea se <15 mL/mi n/1.7 3m2 - Kidne y Failu re Not Available [address], [address], 11/11/2018 16:04:00 11/12/19 19 11/11/2018 CMP, serum or plasm a GFR - if 95.6 mL/mi n For Afric an Ameri can patie nts: Resul ts Multi plied by 1.21 Not Available [address], [address], 11/11/2018 16:04:00 11/12/19 19 11/11/2018 CMP, serum or plasm a sodium 142 mmol/ L 136-14 5 Not Available [address], [address], 11/11/2018 16:04:00 11/12/19 19 11/11/2018 CMP, serum or plasm a potassium 4.3 mmol/ L 3.5-5. 1 Not Available [address], [address], 11/11/2018 16:04:00 11/12/1911/11/2018 CMP, serum or plasm a chloride 104 mmol/ L 96-107 Not Available [address], [address], 11/11/2018 16:04:00 11/12/19 19 11/11/2018 CMP, serum or plasm a anion gap 11.8 5.0-15 .0 Not Available [address], [address], 11/11/2018 16:04:00 11/12/19 19 11/11/2018 CMP, serum or plasm a CO2 26 mmol/ L 21-32 Not Available [address], [address], 11/11/2018 16:04:00 11/12/19 19 11/11/2018 CMP, serum or plasm a calcium 9.4 mg/dL 8.5-10 .3 Not Available [address], [address], 11/11/2018 16:04:00 11/12/1911/11/2018 CMP, serum or plasm a total protein 7.8 g/dL 6.4-8. 2 Not Available [address], [address], 11/11/2018 16:04:00 11/12/1911/11/2018 CMP, serum or plasm a albumin 4.1 g/dL 3.4-5. 0 Not Available [address], [address], 11/11/2018 16:04:00 11/12/1911/11/2018 CMP, serum or plasm a globulin 3.7 g/dL Not Available [address], [address], 11/11/2018 16:04:00 11/12/19 19 11/11/2018 CMP, serum or plasm a A/G 1.1 ratio 0.8-2. 0 Not Available [address], [address], 11/11/2018 16:04:00 11/12/1911/11/2018 CMP, serum or plasm a total bilirubin 0.20 mg/dL 0.00-1 .00 Not Available [address], [address], 11/11/2018 16:04:00 11/12/19 19 11/11/2018 CMP, serum or plasm a AST 19 U/L 0-37 Not Available [address], [address], 11/11/2018 16:04:00 11/12/19 19 11/11/2018 CMP, serum or plasm a ALT 37 U/L 6-63 Not Available [address], [address], 11/11/2018 16:04:00 11/12/19 19 11/11/2018 CMP, serum or plasm a alk. phos. 138 U/L 50-136 high Not Available [address], [address], 11/11/2018 16:04:00 11/12/19 19 11/11/2018 carba mazep ine, serum or plasm a carbamazapin e 10.9 ug/mL 4.0-12 .0 Not Available [address], [address], 11/11/2018 16:04:00 11/12/19 19 11/11/2018 TSH, serum or plasm a TSH 4.81 uIU/m L 0.50-6 .00 The Ameri can Colle ge of Endoc rinol ogy and Ameri can Thyro id Assoc iatio n recom mend goal TSH value s betwe en 0.4-4 .0 mIU/m L. Not Available [address], [address], 11/11/2018 16:08:23 11/12/19 19 11/13/2018 vitam in D3, 25-hy droxy , serum vitamin D, 25-oh, total 30 NG/mL 30-100 Not Available Pending Sale To [facility] [address], [address], 11/13/2018 18:25:10 11/12/19 19 11/13/2018 vitam in D3, 25-hy droxy , serum vitamin D, 25-oh, D3 30 NG/mL Not Available [facility] [address], [address], 11/13/2018 18:25:10 11/12/19 19 11/13/2018 vitam in D3, 25-hy droxy , serum vitamin D, 25-oh, D2 <4 NG/mL 25-OH D3 indic ates both endog enous produ ction and suppl ement ation . 25-OH D2 is an indic ator of exoge nous sourc es such as diet or suppl ement ation . Thera py is based on measu remen t of Total 25-OH D, with level s <20 ng/mL indic ative of Vitam in D defic iency while level s betwe en 20 ng/mL and 30 ng/mL sugge st insuf ficie ncy. Optim al level s are > or = 30 ng/mL . For addit ional infor gigi friedman e refer to http: //[facility] joleen alcantara.que stdia gnost ics.c om/fa q/FAQ 163 (This link is being provi ded for infor froy alcantara/ educbecki lindsey l purpo ses only. ) This test was devel rio and its sterling tical perfo rmanc e narendra cteri stics have been deter mined by [facility]ila [facility] [place] [place]. It has not been clear ed or appro aydee by the U.S. Food and Drug Admin istra tion. This assay has been valid ated pursu ant to the CLIA regul ation s and is used for clini sherrell purpo ses. Not Available [facility] [address] [place] [address] José Luis, [place], [address], 11/13/2018 18:25:10 11/12/19 19 11/15/2018 vitam in B12, serum vitamin B12 589 pg/mL 230-10 50 Not Available [address], [address], 11/15/2018 12:58:57 11/12/19 19 11/15/2018 folat e, serum folate 11 NG/mL 3-16 Not Available [address], [address], 11/15/2018 12:58:58 02/24/20 19 02/24/2019 TSH, serum or plasm a TSH 4.10 uIU/m L 0.50-6 .00 The Ameri can Colle ge of Endoc rinol ogy and Ameri can Thyro id Assoc iatio n recom mend goal TSH value s betwe en 0.4-4 .0 mIU/m L. Not Available [address], [address], 02/24/2019 13:08:59 03/10/2003/09/2019 MAMMO , scree kavita, tomos ynthe sis, bilat eral OBSERV ATION: Screen ing Mammog gini, Bilate ral with utiliz ation of comput er aided detect ion and tomosy nthesi s. Histor y: Benign biopsy left breast Compar uriel: dating back to 2013. Findin gs: No suspic ious masses or suspic ious cluste red microc alcifi cation s are presen t. No william ectura l distor tion or signif icant asymme try is presen t. IMPRES SARAH: Normal negati ve. Annual screen ing is recomm ended. Patien t notifi ed by letter . BI-RAD S CATEGO RY 2 - BENIGN Densit y: A Fatty replac ed POS: [facility] Electr onical ly signed Modesta luis Physic cecille: [facility] (Imaging) [address], [place], [address], 03/10/2019 08:55:02 Result Notes None recorded. Problems Name Problem SNOMED Code Status Onset Date Resolution Date Notes Provider Name and Address Organization Details Recorded Time Hyperhidro sis 505414801 Active 2018 TANA Quinn [facility] 9 15:15:33 Female stress incontinen ce 97837099 Active 2018 TANA Quinn [facility] 9 15:17:53 Internal hemorrhoid s 97530204 Completed 200412/28/2008 Lazara Fletcher MD [address] [place] [address], [address] , [facility] 6 14:19:18 Moderate manic bipolar I disorder 16993205 Active 2005 Lazara Fletcher MD [address] [place] [address], [address] , [facility] 6 14:19:18 Abnormal findings on diagnostic imaging of breast 174117056 Completed 10/17/2015 Lazara Fletcher MD [address] [place] [address], [address] , [facility] 6 14:19:18 Presbyopia 19253112 Completed 200710/17/2015 Lazara Fletcher MD [address] [place] [address], [address] , [facility] 6 14:19:18 Urinary tract infectious disease 45982134 Completed 04/05/2013 Lazara Fletcher MD [address] [place] [address], [address] , [facility] 6 14:19:18 Increased frequency of urination 644583674 Completed 12/28/2008 Lazara Fletcher MD [address] [place] [address], [address] , [facility] 6 14:19:18 Diarrhea 87584255 Completed 200412/28/2008 Lazara Fletcher MD [address] [place] [address], [address] , [facility] 6 14:19:18 Pain of shoulder region 19935683 Completed 04/05/2013 Lazara Fletcher MD [address] [place] [address], [address] , [facility] 6 14:19:18 Open angle with borderline findings Completed 200712/01/2016 Clarisa Bowen NP [address] [place] [address], [address] , [facility] 7 07:25:37 Congenital anomaly of skin 652358329 Completed 10/17/2015 Lazara Fletcher MD [address] [place] [address], [address] , [facility] 6 14:19:18 Plantar fasciitis 121614363 Completed 200512/17/2017 Clarisa Bowen NP [address] [place] [address], [address] , [facility] 8 09:51:24 Insomnia 423710416 Active Lazara Fletcher MD [address] [place] [address], [address] , [facility] 6 14:19:18 Vitamin D deficiency 29432053 Active Lazara Fletcher MD [address] [place] [address], [address] , [facility] 6 14:19:18 Vitamin D deficiency 36506040 Completed 06/24/2011 Lazara Fletcher MD [address] [place] [address], [address] , [facility] 6 14:19:18 Breast lump 00672472 Completed 10/17/2015 Lazara Fletcher MD [address] [place] [address], [address] , [facility] 6 14:19:18 Hemorrhage of rectum and anus 559712239 Completed 200412/28/2008 Lazara Fletcher MD [address] [place] [address], [address] , [facility] 6 14:19:18 Mammograph y abnormal 538321342 Completed 10/17/2015 Lazara Fletcher MD [address] [place] [address], [address] , [facility] 6 14:19:18 Panic disorder without agoraphobi a 70058916 Active 2004 Lazara Fletcher MD [address] [place] [address], [address] , [facility] 6 14:19:18 On examinatio n - a rash Completed 200412/28/2008 Lazara Fletcher MD [address] [place] [address], [address] , [facility] 6 14:19:18 Bipolar I disorder 367522927 Completed 200410/17/2015 Lazara Fletcher MD [address] [place] [address], [address] , [facility] 6 14:19:18 Generalize d abdominal pain 301759136 Completed 200412/28/2008 Lazara Fletcher MD [address] [place] [address], [address] , [facility] 6 14:19:18 Intramural leiomyoma of uterus 71427670 Active 2004 Lazara Fletcher MD [address] [place] [address], [address] , [facility] 6 14:19:18 Psychosexu al dysfunctio n 850970491 Active 2006 Lazara Fletcher MD [address] [place] [address], [address] , [facility] 6 14:19:18 Alopecia 45525380 Completed 12/01/2016 Clarisa Bowen NP [address] [place] [address], [address] , [facility] 7 07:25:34 Alopecia 58638504 Completed 05/03/2011 Clarisa Bowen NP [address] [place] [address], [address] , [facility] 7 07:25:34 Verruca plantaris 36816136 Completed 08/14/2009 Lazara Fletcher MD [address] [place] [address], [address] , [facility] 6 14:19:18 Hypothyroi dism 92535012 Active Lazara Fletcher MD [address] [place] [address], [address] , [facility] 6 17:22:43 Hypothyroi dism 25501444 Completed 200403/17/2010 Lazara Fletcher MD [address] [place] [address], [address] , [facility] 6 14:19:18 Borderline glaucoma Completed 200412/01/2016 Clarisa Bowen NP [address] [place] [address], [address] , [facility] 7 07:25:25 Amenorrhea 78005972 Completed 12/01/2016 Nelida Bowen NP [address] [place] [address], [address] , [facility] 7 07:25:21 Malaise and fatigue 655523949 Completed 200412/28/2008 Lazara Fletcher MD [address] [place] [address], [address] , [facility] 6 14:19:18 Depressed bipolar I disorder 91079595 Completed 200709/17/2009 Lazara Fletcher MD [address] [place] [address], [address] , [facility] 6 14:19:18 Vaginitis and vulvovagin itis Completed 200712/28/2008 Lazara Fletcher MD [address] [place] [address], [address] , [facility] 6 14:19:18 Acquired hypothyroi dism 824047772 Completed 06/24/2011 Lazara Fletcher MD [address] [place] [address], [address] , [facility] 6 14:19:18 Problem Notes None recorded. Procedures Surgical History Date Name Laterality Status Provider Name and Address Organization Details Recorded Time 10/21/19 19 Medicare Annual Wellness Visit completed Marisela Bowen [facility] 10/20/2018 15:10:36 09/21/19 18 Refraction completed Alisha Renteria [facility] 09/20/2017 10:12:09 01/30/20 17 POC hCG Testing completed Sarah Siegel MA [facility] 01/29/2017 12:04:58 11/01/19 16 86136: PT Evaluation completed Dipak Clemons, PT [address] [place], [address], [facility] 11/01/2015 11:05:56 11/29/19 15 Refraction completed Piper Acosta OD [address] [place], [address], [facility] 11/28/2014 16:52:46 09/07/19 14 Medicare Wellness Visit completed Martha Felix [facility] 09/06/2013 08:38:28 01/26/20 12 Medicare Wellness Visit completed Sarah Siegel [facility] 01/26/2012 14:40:09 10/03/19 11 Medicare Annual Wellness Visit completed Chio Perez MA [facility] 10/02/2010 13:55:33 10/03/19 11 Medicare Risk for Falls Screen completed Chio Perez [facility] 10/02/2010 13:55:33 10/03/19 11 Advanced Care Planning completed Chio Perez [facility] 10/02/2010 13:55:33 09/11/19 10 Removal of foreign body from the skin completed CARTER Patiño [address] [place], [address], [facility] 09/11/2009 20:50:23 08/13/19 10 Wart completed CARTER Patiño [address] [place], [address], [facility] 08/14/2009 21:37:21 Imaging Results Imaging Date Name Status LastModified by Organiz ation Details LastModified Time 03/09/2019 MAMMO, screening, tomosynthesis, bilateral completed [address] (Imaging) [address] [place], [address], 03/10/2019 08:55:02 Procedure Notes None recorded. Medical Equipment None Reported. Allergies Allergen ID Allergen Name Allergen Category Reaction Reaction Severity Criticality Documentation Date Start Date Code Code System Note Provider Name and Address Organization Details Recorded Time 323409 mold extract environme nt Not available Not available Not available 10/20/2018 09019 8 [facility] 14:56:20 Medications Name Sig Start Date Stop Date Status Note LastModified by Organization Details LastModified Time bupropion HCl SR 150 mg tablet,12 hr sustained- release take 2 in am 04/02 completed Not Available Not Available Not Available doxycyclin e hyclate 100 mg capsule active Not Available Not Available Not Available venlafaxin e 75 mg tablet Take 1 tablet every day by oral route. active Not Available Not Available No t Available Celexa 10 mg tablet active take 1 tab daily Not Available Not Available Not Available clindamyci n HCl 300 mg capsule TAKE ONE CAPSULE BY MOUTH EVERY 6 HOURS UNTIL GONE active Not Available Not Available No t Available trazodone 50 mg tablet active Not Available Not Available Not Available hydrocodon e 5 mg-acetami nophen 325 mg tablet TAKE ONE TABLET BY MOUTH EVERY 6 HOURS NEEDED FOR PAIN 04/02 completed Not Available Not Available Not Available Keflex 500 mg capsule Take 1 capsule every 12 hours by oral route for 7 days. 10/28 completed Not Available Not Available Not Available calcium 500 mg (as calcium carbonate 1,250 mg) capsule Take 1 capsule twice a day by oral route for 90 days. 2008 active Not Available Not Available Not Avai lable hydroxyzin e HCl 50 mg tablet Take 1 tablet 3 times a day by oral route as needed. 04/02 completed Not Available Not Available Not Available Tegretol XR 100 mg tablet,ext ended release active Not Available Not Available Not Available triamcinol one acetonide 0.1 % topical cream APPLY A THIN LAYER TO THE AFFECTED AREA(S) BY TOPICAL ROUTE 4 TIMES PER DAY active Not Available Not Available No t Available carbamazep ine ER 400 mg tablet,ext ended release,12 hr TAKE 1 TABLET WITH ONE 200MG TABLET TWO TIMES A DAY FOR TOTAL DAILY DOSE OF 1200MG DAILY active Not Available Not Available No t Available carbamazep ine 200 mg tablet Take 2 tablets twice a day by oral route. active Not Available Not Available No t Available Levoxyl 25 mcg tablet TAKE 10 TABLETS A WEEK (2 tabs mon, wed and fri, and one tab tu, , wed and wednesday) 2010 active dose change from dr.cohe alcantara Not Available Not Available Not Available oxycodone- acetaminop hen 5 mg-325 mg tablet 02/23 completed Not Available Not Available Not Available bupropion HCl 100 mg tablet take two tabs in am and two tabs in afternoo n active Not Available Not Available No t Available calcium 600 mg (as calcium carbonate 1,500 mg) tablet TAKE ONE TABLET EVERYDAY active Not Available Not Available No t Available Depo-Prove ra 150 mg/mL intramuscu lar suspension Inject 1 mL every 3 months by intramus cular route. 2010 active Not Available Not Available Not Avai lable Lamictal 200 mg tablet active 1.00 tab daily Not Available Not Available Not Available Celexa 20 mg tablet active take 1 tab daily Not Available Not Available Not Available carbamazep ine ER 200 mg tablet,ext ended release,12 hr TAKE ONE TABLET BY MOUTH TWICE A DAY WITH ONE 400MG TABLET active Not Available Not Available No t Available levothyrox ine 50 mcg tablet TAKE 1 TABLET BY MOUTH 6 DAYS PER WEEK, 1 AND 1/2 ON WEDNESDAY active Not Available Not Available No t Available erythromyc in 5 mg/gram (0.5 %) eye ointment active Not Available Not Available Not Available venlafaxin e 37.5 mg tablet TAKE TWO TABS EVERY MORNING 08/20 completed Not Available Not Available Not Available diphenhydr amine 25 mg capsule take 1-4 capsules at bedtime as needed for insomini a 06/29 completed prn Not Available Not Available Not Available Lamictal 100 mg tablet Take by oral route at bedtime. active take 2 in am, take 3in pm Not Available Not Available Not Available ziprasidon e 40 mg capsule active Not Available Not Available Not Available ibuprofen 600 mg tablet 02/23 completed Not Available Not Available Not Available fluticason e propionate 50 mcg/actuat ion nasal spray,susp ension 10/20 completed Not Available Not Available Not Available Duofilm 17 % topical liquid apply to affect area every night, cover with bandaid 09/17 completed Not Available Not Available Not Available bupropion HCl SR 200 mg tablet,12 hr sustained- release active Not Available Not Available Not Available aripiprazo le 10 mg tablet TAKE ONE TABLET BY MOUTH EVERY MORNING 08/20 completed Not Available Not Available Not Available aripiprazo le 15 mg tablet TAKE ONE TABLET BY MOUTH EVERY DAY (NEW TOTAL DAILY DOSE 15MG) 12/01 completed Not Available Not Available Not Available Vitamin D3 25 mcg (1,000 unit) tablet TAKE 3 TABLET(S ) BY MOUTH EVERY DAY 02/23 completed Not Available Not Available Not Available Vitamin D3 25 mcg (1,000 unit) capsule Take 1 capsule every day by oral route for 90 days. 2013 active Not Available Not Available Not Avai lable Virignia 0.35 mg tablet TAKE ONE TABLET BY MOUTH EVERY DAY FOR 28 DAYS 01/29 completed Not Available Not Available Not Available aripiprazo le 5 mg tablet TAKE 1 TABLET BY MOUTH DAILY active Not Available Not Available No t Available bupropion HCl XL 300 mg 24 hr tablet, extended release Take 1 tablet every day by oral route. 02/23 completed Not Available Not Available Not Available bupropion HCl XL 150 mg 24 hr tablet, extended release TAKE ONE TABLET BY MOUTH EVERY MORNING WITH 300MG FOR TDD OF 450MG 09/24 completed Not Available Not Available Not Available Poise Pads active Not Available Not Av ailable Not Available chlorhexid ine gluconate 0.12 % mouthwash active Not Available Not Available No t Available carbamazep ine 600mg bid 10/20 completed 1200 mg daily Not Available Not Available Not Available Effexor active takes 150 mg in pm Not Available Not Available Not Available Calcium 600 active Not Available Not Available Not Available Vitamin D3 02/23 completed Not Available Not Available Not Available Elemental Calcium 600 mg (1,500 mg) tablet TAKE ONE TABLET(S ) BY MOUTH TWICE DAILY 2010 active Not Available Not Available Not Avai lable [place] 3-6-9 active Not Available Not Available Not Available cholecalci ferol (vitamin D3) 50 mcg (2,000 unit) tablet active Not Available Not Available Not Available Lubricant Eye (PG-PEG 400) 0.4 %-0.3 % drops 1 drop into each eye 2-4 x per day active Not Available Not Available No t Available Viibryd 40 mg tablet Take 1 tablet every day by oral route at bedtime. active Not Available Not Available No t Available Selsun Blue Naturals 3 % shampoo Apply topicall y 3 times a week. 2012 active Not Available Not Available Not Avai lable Drysol 20 % topical solution Apply 1 applicat ion every day by topical route as needed for 30 days. 02/23 completed Not Available Not Available Not Available Fluvirin 4445-3075 45 mcg (15 mcg x 3)/0.5 mL intramuscu lar suspension VACCINAT ION ADMINIST ERED BY INGE BALES 01/29 completed Not Available Not Available Not Available Vitals Date Recorded Body height Heart rate Systolic blood pressure Diastolic blood pressure Provider Name and Address Organization Details Last Updated DateTime 06/23/2018 157.48 cm 68 /min 130 mm[Hg] 72 mm[Hg] Sherry Donovan [facility] 06/23/2018 11:53:44 Date Recorded Body height Body mass index (BMI) Body weight Systolic blood pressure Diastolic blood pressure Provider Name and Address Organization Details Last Updated DateTime 10/20/2018 157.48 cm 38.6 kg/m2 95106.99 g 138 mm[Hg] 68 mm[Hg] Marisela Bowen MA [facility] 9 14:58:42 Date Recorded Body height Body mass index (BMI) Body weight Systolic blood pressure Diastolic blood pressure Provider Name and Address Organization Details Last Updated DateTime 12/01/2018 157.48 cm 38.4 kg/m2 36353.4 g 118 mm[Hg] 64 mm[Hg] Marisela Bowen MA [facility] 9 15:16:23 Date Recorded Body height Body temperature Body mass index (BMI) Body weight Systolic blood pressure Diastolic blood pressure Provider Name and Address Organization Details Last Updated DateTime 9 157.48 cm 98.2 [degF] 37.3 kg/m2 06446.8 9 g 120 mm[Hg] 68 mm[Hg] Marisela Bowen MA [facility] 9 16:01:56 Social History Question Answer Notes LastModified by Organizat ion Details LastModified Time Tobacco Smoking Status Never Smoker Not Available [employer] 04/02/2011 04:53:18 What Is Your Level Of Alcohol Consumption? None [email or web address] Information not available 04/10/2014 What Is Your Level Of Caffeine Consumption? None [email or web address] Information not available 04/02/2011 How Much Tobacco Do You Chew? None [email or web address] Information not available 09/11/2014 What Type Of Diet Are You Following? REGULAR [email or web address] Information not available 04/02/2011 Education 4 Year College [employer] [place] Information not available 11/20/2008 What Is Your Occupation? Disability [email or web address] Information not available 04/02/2011 Are There Any Guns Present In Your Home? No [email or web address] Information not available 04/02/2011 Live Alone Or With Others? Alone Information not available 10/20/2018 Patient Has Health Care Proxy Signed And In Chart No Akil Debbie(product development consultant)@ [facility] [place] [email or web address] Information not available 05/02/2018 Marital Status [email or web address] Information not available 04/02/2011 Mosquito Repellent Used Routinely Yes [email or web address] Information not available 04/02/2011 What Was The Date Of Your Most Recent Tobacco Screening? 02/23/2019 [email or web address] Information not available 02/23/2019 How Many Children Do You Have? 1 [email or web address] Information not available 04/02/2011 Seat Belts Used Routinely Yes [email or web address] Information not available 04/02/2011 Are You Sexually Active? No [email or web address] Information not available 04/02/2011 Smoke Alarm In Home Yes [email or web address] Information not available 04/02/2011 General Stress Level High Information not available 10/20/2018 Do You Use Sunscreen Routinely? Yes Information not available 10/20/2018 Sex: Unknown Functional Status None recorded. Mental Status None recorded. Family History Relationship Description Onset Age of this Age Resolved Age Notes LastModified by Organization Details LastModified Time Mother Procedure on joint [email or web address] Not available 2015 14:25:01 Mother Depressed bipolar I disorder [email or web address] Not available 2015 14:25:01 Daughter Severe mixed bipolar I disorder with psychotic features 5th genera tion [email or web address] Not available 10/17/2015 14:25:01 Father Chronic obstructive pulmonary disease smoker (previ ously record ed as COPD) [email or web address] Not available 10/17/2015 14:25:01 Father Malignant neoplasm of lung 70 70 previo usly record ed as Cancer - Lung Not available 07/13/2014 07:06:31 Notes:Cardiovascular: Family history is remarkable for hypertension. Psychiatric: Family history is remarkable for bipolar disorder. mother, daughter, grandmother, maternal aunt Cancer: Family history is remarkable for lung cancer. Her father had lung cancer. age 73 (hx emphysema Medical History Condition Response Hypothyroid Y EYE RENAL / GENITOURINARY N ENT N GASTROINTESTINAL N METABOLIC N SKIN N Seizures N Bipolar Disorder Y CARDIOVASCULAR N MUSCULOSKELETAL N RHEUMATOLOGIC N RESPIRATORY N Gynecological History Statement/Question Response Current Control Method Condoms Obstetrics History GPAL:G 0 P 0 0 0 0 Immunizations Vaccine Type Date Status Note Provider Nam e and Address Organization Details Recorded Time Tdap 1 completed Not Available [facility] 06/03/2019 02:33:38 Influenza, split virus, trivalent, preservative 1 completed Not Available [facility] 06/03/2019 02:27:38 influenza, unspecified formulation 5 completed Not Available [facility] 04/01/2011 05:21:29 influenza, unspecified formulation 7 completed Not Available [facility] 04/01/2011 05:21:29 influenza, unspecified formulation 8 completed Not Available [facility] 04/01/2011 05:21:55 Influenza, split virus, trivalent, preservative 2 completed Not Available [facility] 06/03/2019 02:18:34 influenza, unspecified formulation 9 completed Not Available [facility] 04/01/2011 05:22:13 Novel [id number] 0 completed Not Available [facility] 06/03/2019 02:27:08 Influenza, split virus, quadrivalent, PF 5 completed Not Available [facility] 06/03/2019 02:31:52 Influenza, split virus, trivalent, preservative 4 completed TANA Jennings [facility] 03/23/2014 16:12:23 Influenza, split virus, quadrivalent, PF 8 completed Not Available [facility] 06/03/2019 02:23:02 Influenza, split virus, quadrivalent, preservative 6 completed TANA Jennings [facility] 02/06/2016 15:23:58 Influenza, split virus, quadrivalent, preservative 7 completed Sarah Siegel MA [facility] 01/29/2017 12:28:32 Influenza, split virus, quadrivalent, PF 9 completed Not Available [facility] 06/03/2019 02:28:51 Influenza, split virus, trivalent, preservative 0 completed Not Available [facility] 06/03/2019 02:39:38 Past Encounters Encounter ID Performer Location Encounter Start Date Encounter Closed Date Diagnosis/Indication Diagnosis SNOMED-CT Code Diagnosis ICD10 Code Diagnosis Note [id number] CARTER Patiño, [facility], [address] [place] [address] 07/11/2004 10:33:05 07/11/2004 17:23:10 [id number] [facility] - [address] [address] 07/29/2004 09:42:19 07/29/2004 09:42:37 [id number] CARTER Patiño, [facility], [address] [place] [address] 07/29/2004 09:03:03 07/31/2004 10:16:46 [id number] [facility] - [address] [address] 09/09/2004 12:37:29 09/09/2004 12:37:46 [id number] Donya Soto, [facility], [address] [place] [address] 09/09/2004 11:34:17 06/06/2008 02:02:29 [id number] CARTER Patiño, [facility], [address] [place] [address] 09/26/2004 11:34:56 09/26/2004 17:47:11 [id number] CARTER Patiño, [facility], [address] [place] [address] 12/30/2004 10:29:02 06/06/2008 02:02:29 [id number] [facility] - [facility] [address] [place] [address] 12/30/2004 12:14:39 12/30/2004 12:15:10 [id number] [facility] Radiology , [address] [address] 02/02/2005 11:22:58 06/06/2008 02:02:29 [id number] Irish Romero NP , [facility], [address] [place] [address] 02/04/2005 13:53:54 06/06/2008 02:02:29 [id number] [facility] - [address] [address] 02/05/2005 09:25:08 02/05/2005 09:25:29 [id number] Tosin Joaquina, OD Eye Care, [address] [address] 04/07/2005 11:27:08 06/06/2008 02:02:29 [id number] [facility] Radiology , [address] [address] 04/07/2005 10:31:59 06/06/2008 02:02:29 [id number] [facility] , [facility], [address] [place] [address] 04/16/2005 10:10:00 06/06/2008 02:02:29 [id number] Gaye Agrawal M.D . , [facility], [address] [place] [address] 01/26/2006 11:56:05 01/27/2006 08:44:27 [id number] [facility] Radiology , [address] [address] 02/04/2006 10:47:14 06/06/2008 02:02:29 [id number] Sultana feliz, PT Physical Therapy, [address] [address] 02/08/2006 09:53:36 02/09/2006 09:06:28 [id number] [facility] - [address] [address] 04/15/2006 07:42:44 04/15/2006 07:42:55 [id number] MD LINO Bunch, [facility], [address] [place] [address] 05/04/2006 10:29:37 05/04/2006 16:03:23 [id number] CARTER Patiño, [facility], [address] [place] [address] 05/19/2006 12:00:23 05/19/2006 12:00:30 [id number] [facility], [facility], [address] [place] [address] 06/03/2006 13:54:23 06/03/2006 16:37:13 [id number] [facility] - [address] [address] 07/13/2006 12:04:08 07/13/2006 12:04:17 [id number] CARTER Patiño, [facility], [address] [place] [address] 07/13/2006 11:26:25 07/19/2006 11:19:11 [id number] [facility] - [address] [address] 10/19/2006 09:43:51 10/19/2006 09:43:56 [id number] [facility] - [address] [address] 08/08/2007 07:26:06 08/08/2007 07:26:13 [id number] [facility] - [address] [address] 08/12/2007 09:03:55 08/12/2007 09:04:00 [id number] Tosin Kunz, OD Eye Care, [address] [address] 08/19/2007 11:56:10 08/22/2007 12:56:14 [id number] Tosin Kunz, OD Eye Care, [address] [address] 08/19/2007 00:00:00 06/06/2008 02:02:29 [id number] [facility], [address] [address] 09/13/2007 10:47:30 09/13/2007 16:01:12 [id number] CARTER Patiño, [facility], [address] [place] [address] 08/05/2007 13:42:10 06/06/2008 02:02:29 [id number] [facility] Radiology , [facility] [address] [place] [address] 10/24/2007 12:55:01 10/25/2007 09:06:41 [id number] [facility] - [address] [address] 03/09/2008 11:58:39 03/09/2008 11:58:46 [id number] [facility] FP, [facility], [address] [place] [address] 03/09/2008 15:14:33 03/09/2008 15:21:35 [id number] CARTER Patiño, [facility], [address] [place] [address] 11/20/2008 09:32:37 11/22/2008 11:50:15 [id number] [facility] , [facility] [address] [place] [address] 12/01/2008 09:55:28 12/06/2008 08:57:50 [id number] [facility] - [address] [address] 07/09/2008 12:40:11 07/09/2008 12:40:32 [id number] [facility] - [address] [address] 02/19/2009 09:28:03 02/19/2009 09:28:22 [id number] KATHRYN Purvis, [facility], [address] [place] [address] 05/24/2009 13:52:42 05/28/2009 11:22:40 [id number] MD LINO Arora, [facility], [address] [place] [address] 05/27/2009 14:35:29 06/07/2009 15:29:10 [id number] CARTER Patiño, [facility], [address] [place] [address] 08/12/2009 13:39:58 08/16/2009 13:55:08 [id number] CARTER Patiño, [facility], [address] [place] [address] 09/10/2009 13:59:56 09/12/2009 12:03:43 [id number] CARTER Patiño , [facility], [address] [place] [address] 09/17/2009 10:23:01 09/19/2009 11:43:17 [id number] Jon Rain MD , [facility], [address] [place] [address] 10/15/2009 15:03:03 10/21/2009 08:53:22 [id number] Dipak Christine DPM Podiatry, [facility] [address] [place] [address] 01/16/2010 11:01:43 01/29/2010 11:59:45 [id number] [facility] FP, [facility], [address] [place] [address] 04/02/2010 07:17:53 04/02/2010 11:35:03 [id number] [facility] Radiology , [facility] [address] [place] [address] 08/21/2010 13:54:06 08/25/2010 12:25:02 [id number] [facility] Radiology , [address] [address] 08/28/2010 12:47:22 08/29/2010 11:29:50 [id number] [facility] Radiology , [address] [address] 08/28/2010 12:48:06 08/29/2010 11:29:54 [id number] CARTER Patiño, [facility], [address] [place] [address] 10/02/2010 13:36:41 10/06/2010 09:25:19 [id number] [facility], [facility], [address] [place] [address] 10/20/2010 14:42:04 10/21/2010 13:45:28 [id number] CARTER Patiño, [facility], [address] [place] [address] 01/26/2011 10:46:48 01/26/2011 11:15:55 [id number] CARTER Patiño, [facility], [address] [place] [address] 04/23/2011 08:27:48 04/23/2011 16:30:36 [id number] CARTER Patiño FP, [facility], [address] [place] [address] 06/23/2011 09:47:39 06/23/2011 10:49:08 [id number] Naye Ruiz MD Radiology , [facility] [address] [place] [address] 01/26/2012 12:44:32 01/27/2012 08:54:38 [id number] KATHRYN Gambino, [facility], [address] [place] [address] 01/26/2012 13:32:54 01/26/2012 15:44:34 [id number] Rogers Palacios MD Radiology , [address] [address] 02/11/2012 13:50:30 02/12/2012 12:52:37 [id number] Rogers Palacios MD Radiology , [address] [address] 02/11/2012 13:50:37 02/12/2012 12:53:10 [id number] Rogers Palacios MD Radiology , [place] [address] 02/18/2012 09:42:48 02/22/2012 13:35:44 [id number] Rogers Palacios MD Radiology , [address] [address] 02/18/2012 09:43:03 02/22/2012 13:38:07 [id number] Sultana feliz, PT Physical Therapy, [facility] [address] [place] [address] 05/05/2012 14:25:44 05/05/2012 16:21:23 [id number] KATHRYN Gambino, [facility], [address] [place] [address] 06/03/2012 15:21:32 06/03/2012 16:00:08 [id number] KATHRYN Gambino, [facility], [address] [place] [address] 09/08/2012 11:48:58 09/08/2012 15:27:44 [id number] Raquel Mcneill MD FP, [facility], [address] [place] [address] 09/06/2013 08:17:01 09/06/2013 09:35:10 Adult health examination [id number] see Risk Assessment and Lifestyle Change Counseling section above, will fill out form when titers are available. PPD will also be placed today and read Wednesday. Counseling [id number] Pat bryon will use condoms for now and return if she decides she wants depo provera for testing and start protocol. Hypothyroidism [id number] Vitamin D deficiency [id number] Bipolar I disorder [id number] Per patient stable. She is only taking lamictal and levothyrox ine, no controlled substances at this time. 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 Tuberculos is screening [id number] KATHRYN Curry, [facility], [address] [place] [address] 04/02/2014 13:50:24 04/02/2014 14:18:51 Eruption [id number] It red rash - ? allergic vs viral. Dr. Cuadra in to look at this as well. Will treat with antihistam arnel and steroid cream as below. Warned about drowsiness from the Benadryl and pt to f/u if this isn't resolving over the next week or if sx are worsening/ spread. She is comf. with this plan. [id number] KATHRYN Gambino, [facility], [address] [place] [address] 04/10/2014 11:19:24 04/10/2014 12:08:01 Hypothyroidism 27661006 stable on med Pain of hip region 27476702 Eruption [id number] impro aydee. report recurrence Bipolar I disorder [id number] SUggest local support group , continue counseling , try SUBSTANCE ABUSE SPECIALIST for new med prescriber RTC prn [id number] KATHRYN Gambino, [facility], [address] [place] [address] 05/02/2014 15:33:30 05/02/2014 16:00:56 Bipolar I disorder [id number] Stable. Suggest local support group , continue counseling , RTC prn Hypothyroidism 85811315 stable on med Pain of hip region 44539069 xray order in consider PT [id number] KATHRYN Gambino, [facility], [address] [place] [address] 07/12/2014 11:08:32 07/12/2014 11:44:59 Eruption [id number] possibly related to anxiety - trial of hydroxyzin e = pt is advised not to take Benadryl also unscented products, humidifier , fluids rtc prn Bipolar I disorder [id number] Will speak with pt's psychiatri st, Dr Sanon, re providing meds between visits. Discussed other options in community who might take her insurance. [id number] KATHRYN Gambino, [facility], [address] [place] [address] 09/11/2014 13:53:03 09/11/2014 15:03:59 Adult health examination [id number] see Risk Assessment and Lifestyle Change Counseling section above Pt agrees to RTC for Pap after menses Counseling [id number] Eruption [id number] persi stent despite trial of Benadryl and hydroxyzin e using unscented products, no changes derm referral pt to call with name of MD who takes her insurance Bipolar I disorder [id number] Seeing Dr Queen at [facility] Stable - depression predominan t at this time - no si/hi Hypothyroidism 39689076 stable on med [id number] KATHRYN Gambino, [facility], [address] [place] [address] 10/09/2014 15:55:17 10/09/2014 16:50:11 Screening for malignant neoplasm of cervix [id number] Adult heal th examination [id number] FOrms completed for work [id number] Piper Acosta, OD Eye Care, [facility] [address] [place] [address] 11/28/2014 14:45:01 12/08/2014 03:45:12 Dry eyes 135055790 c/w occasional tearing. pt ed. rec AT bid prn [id number] KATHRYN Gambino, [facility], [address] [place] [address] 02/27/2015 13:31:01 02/27/2015 14:26:11 Influenza vaccine needed [id number] 106 Z28.3 Amenorrhea 92810956 N91. 2 [id number] Clarisa Bowen NP FP, [facility], [address] [place] [address] 05/13/2015 11:15:35 05/16/2015 10:12:44 [id number] Lazara Fletcher MD FP, [facility], [address] [place] [address] 10/17/2015 14:08:34 10/17/2015 14:36:09 Sprain of ankle 86365917 S93.491A mild sprain, able to weight bear but not apply weight to affected leg alone or on steps instr improtance of supportive shoe, wrap for acute phase and stablity start PT ice, elevation, nsaids Hypothyroidism 89020267 E03.9 reviewed normal results no changes Obesity 479432654 E66.9 aware working on it has active plan- with her jew [id number] Dipak Clemons , PT Physical Therapy, [facility] [address] [place] [address] 11/01/2015 10:17:25 11/01/2015 14:08:44 Sprain of ankle 45965303 S93.401D [id number] Clarisa Bowen NP FP, [facility], [address] [place] [address] 04/02/2016 14:24:37 04/02/2016 15:07:01 Adult health examination 897862072 Z00.00 see Risk Assessment and Lifestyle Change Counseling section above Counseling [id number] Z71 .9 Panic diso rder without agoraphobia 27112053 F41.0 Positive enc for current high level functionin g. Moderate m anic bipolar I disorder [id number] F31.12 Stable - continue meds, counseling . RTC for PHA and prn [id number] Clarisa Bowen NP , [facility], [address] [place] [address] 08/20/2016 14:18:40 08/20/2016 14:58:46 Contraception care 730931543 Z30.40 Reviewed options at length for women over 50. Advised number one should be condoms every time. Will start micronor, discussed ways to remember to take same time, caution re rushing into [facility]. Call with concerns. RTC for PHA and ptn Bipolar disorder 3911158 4 F31.9 seems to have sl elevated mood - caution re new relationsh ip.Will see pt next month. [id number] KATHRYN Gambino, [facility], [address] [place] [address] 09/24/2016 15:31:32 09/24/2016 16:05:25 Hypothyroidism 47492783 E03.9 stable Panic diso rder without agoraphobia 98703568 F41.0 stable Surveillan ce of oral contraception 597433743 Z30.41 ok to continue micronor -report problems or concerns, rtc 3mos Bipolar disorder 7191414 4 F31.9 seems to still have sl elevated mood - caution re new relationsh ip, safer sex.Will see pt 3 month. [id number] KATHRYN Gambino, [facility], [address] [place] [address] 01/29/2017 11:27:20 01/29/2017 12:20:58 Irregular periods 00410039 N92.6 advised re need for prevention until no menses > 1 yr [id number] KATHRYN Gambino, [facility], [address] [place] [address] 06/29/2017 13:55:18 06/29/2017 14:32:43 Eustachian tube disorder 54986389 H69.91 reassured no infection - will likely improe as cold resolves. RTC prn Bipolar disorder 3146246 4 F31.9 depressed phase -in treatment and feels safe. Emotional support.Wi ll see pt 3 month. [id number] Piper Acosta, OD [facility], [facility] [address] [place] [address] 09/20/2017 09:51:21 09/20/2017 15:09:43 Dry eyes 951229104 H04.129 c/w occasional tearing. pt ed. rec AT bid OU. Presbyopia 52289399 H52. 4 [id number] KATHRYN Gambino, [facility], [address] [place] [address] 10/14/2017 08:23:14 10/14/2017 09:14:47 Adult health examination 769266883 Z00.00 see Risk Assessment and Lifestyle Change Counseling section above Counseling 804718377 Z71 .9 Depression screening 171 393227 Z13.89 depression screening tool administer ed, entered into emr, scored and discussed, time greater than 7.5 minutes Hypothyroidism 61404498 E03.9 stable Panic diso rder without agoraphobia 41749915 F41.0 stable Moderate m anic bipolar I disorder 19307758 F31.12 Stable - continue meds, counseling .Discussed calling me if manic -pt tends toward inc sexual activity - LMP January 2017 - advised 100% condoms. Not SA since 12/2016. Screening for malignant neoplasm of cervix 653038729 Z12.4 Screening mammography 24 535813 Z12.31 [id number] KATHRYN Gambino, [facility], [address] [place] [address] 02/10/2018 13:43:50 02/11/2018 09:34:59 Hypothyroidism 58333949 E03.9 stable Moderate m anic bipolar I disorder 25070975 F31.12 Stable - continue meds, counseling . Panic diso rder without agoraphobia 57408276 F41.0 stable Active or passive immunization 804366825 Z23 Venereal d isease screening 594542216 Z11.3 reviewed risk awareness, call iffeeling manic - occas has had UPI when in that state and she agrees to call me or therapist if emilee luis SA. Adult heal th examination 212536605 Z00.00 see Risk Assessment and Lifestyle Change Counseling section above [id number] KATHRYN Gambino, [facility], [address] [place] [address] 04/15/2018 14:57:07 04/15/2018 15:36:39 Hypothyroidism 72249339 E03.9 stable Moderate m anic bipolar I disorder 99088186 F31.12 Stable - continue meds, counseling . [id number] KATHRYN Gambino, [facility], [address] [place] [address] 06/01/2018 15:33:10 06/01/2018 16:09:45 Low back pain 652042900 M54.5 advised topical biofreeze or lidocaine - ice/heat, stretches. RTC prn Moderate m anic bipolar I disorder 15415065 F31.12 Stable - continue meds, counseling . [id number] KATHRYN Gambino, [facility], [address] [place] [address] 06/23/2018 11:45:44 06/23/2018 12:17:19 Venereal disease screening 136859582 Z11.3 suggest retesting iin 3mos - risk awareness counseling . Constipation 11561497 K5 9.00 resume stool softener, inc fruits and veggies Moderate m anic bipolar I disorder 06788762 F31.12 Seems to be in manic phase - continue meds, counseling . Close monitoring . RTC 1month [id number] KATHRYN Gambino, [facility], [address] [place] [address] 10/20/2018 13:55:51 10/20/2018 15:25:34 Adult health examination 422103242 Z00.00 see Risk Assessment and Lifestyle Change Counseling section above Counseling 897775137 Z71 .9 Depression screening 171 392310 Z13.89 depression screening tool administer ed, entered into emr, scored and discussed, time greater than 7.5 minutes Hypothyroidism 07570388 E03.9 stable Panic diso rder without agoraphobia 89914302 F41.0 stable Hyperhidrosis 746238807 R61 Moderate m anic bipolar I disorder 77708330 F31.12 Stable at present, cont therapy RTC prn Female str ess incontinence 73929228 N39.3 Use restroom on a regular basis, kegel excercise throughout the day, avoid drinks that irritate bladder. May consider referral to urologist. At this time pt prefers to use pads and no referral. 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 pt ed. rec AT bid OU. Presbyopia 82138218 H52. 4 Health Concerns Section Related Observation LastModified by Organization Detai ls LastModified Time None Recorded Concern Status LastModified by Organization Details LastModified Time None Recorded Advance Directives Directive None Recorded Payers Encounter Date Sequence Insurance Name Policy Number Policy Sun Covered Member ID Sun Member ID Guarantor Name 06/23/2018 3 [place] Maile Piantedosi [id number] Maile Piantedosi 06/23/2018 1 [place] [employer] [employer] Maile Piantedosi [id number] Maile Piantedosi 10/20/2018 3 [place] Maile Piantedosi [id number] Maile Piantedosi 10/20/2018 1 [place] [employer] Maile Piantedosi [id number] Maile Piantedosi 12/01/2018 3 [place] Maile Piantedosi [id number] Maile Piantedosi 12/01/2018 1 [place] Maile Piantedosi [id number] Maile Piantedosi 02/23/2019 3 [place] Maile Piantedosi [id number] Maile Piantedosi 02/23/2019 1 [place] Maile Piantedosi [id number] Maile Piantedosi 03/29/2019 3 [place] Maile Fernandez [id number] Maile Fernandez 03/29/2019 1 [place] [email or web address] Maile Fernandez [id number] Maile Fernandez Notes Date Note Type Note Provider Name and Address Organization Details Recorded Time 06/23/2018 text/html Maile met tana alcantara online - he came here from [place] on bus.Stayed for a week, SA without condom.He wanted to meet her therapist and did.She is now having second thoughts, not sure if she believes him.Conflicted.Stat es she is sleeping, no other manic behaviors.Also having constipation, feels she drinks a lot of water. But meat, cheese, fewer fresh veggies. Clarisa Bowen, KATHRYN [address] [place] [address], [phone], [facility] 06/24/2018 05:59:20 10/20/2018 text/html Physical Exam/FemaleReported bypatient.Glenroy roger is here for a Wellness Visit. She describes her health status as fair. Patient's health is the same as last year.Notes: Risk Assessment and Lifestyle Change Counseling 50-64Reported bypatient.Coronary Artery Disease Risk Assessment:No Family history of coronary artery disease; No personal history of diabetes; No history of peripheral vascular disease, AAA, or carotid disease; No personal history of coronary artery disease Breast Cancer Risk Assessment:No family history of breast cancer; No history of breast cancer or dcis Colon Cancer Risk Assessment:No family history of colon polyps or cancer; No history of adenomatous colon polyps Lung Cancer Risk Assessment:Never smoked Fracture Risk Assessment:No unexplained fracture Cognitive/Behaviora l Risk Assessment:Personal history of mental illnes;Family history of mental illness Safety Risk Assessment:No evidence of abuse/neglect; Concerns for alcohol or drug abuse?NO Diet:Counseled about the importance of maintaining a positive calcium balance and taking 1000 iu Vitamin D daily.; Counseled about decreasing carbohydrates Exercise counseling:Discusse d the importance of daily physical activity; Discussed the importance of weight bearing exercise Safety:Counseled about safer sexual practice 1. Communicating with mother over last month. Mother is manic. Feels mother is toxic and couldn't go down. Wrote letter to mother and explained she needed to stay away from the phone per therapist. Mother calling 3-4 x per day. Patient not talking to daughter. Very lonely, no friends. States has a lot of activites in neighborhood. Organized shower for neighbor. 2. Sweating - hyperhidrosis. Has a fan and ac unit in apartment. 3. Incontinence - when coughing and sneezing - wearing pads. 4. Man who she met discussed marriage after 1 week. Made pt nervous. Decided only to be friends with him. Is working with therapist with feelings. TANA Quinn, [facility] 10/20/2018 15:22:56 12/01/2018 text/html Patient here to discuss thyroid, CBD tincture - to achieve orgasm (anorgasmia not new), ? Estrogen. Labs reviewed. Psychiatric nurse wants to increase Vit D3 - 3000 iu aand inc levothyroxine. Brought notes to share. [facility] in [place] . Patient states feel like she wants to sleep. Feels interest in doing things, but feels tired/sleepy. Unsure if snores while sleeping, Wakes up to use bathroom. 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 5 is a neutral/normal - when higher it is scary =States at a 9 spends rent money.Denies constipation, no itchy skin. Clarisa Bowen, ELECTRICAL PROJECT ENGINE[employer] [address] [place] [address], [phone], [facility] 12/02/2018 08:08:42 02/23/2019 text/html Patient is here for follow up. Feels mood is balanced balanced today. Patient states she is doing well. Getting over a cold. Not speaking with daughter. Still seeing therapist. Will be assigned to a new psych prescriber. Has new dog who she adopted. States he is a good owner/photographer. Had oral surgery 2 weeks ago. Referral plastic surgery - Tomi Gomez - lipoma removal Considering switching insurance to [facility]. TANA Quinn, [facility] 02/23/2019 16:25:46 03/29/2019 text/html Dry EyeReported bypatient.Location: bilateral Severity:mild Duration:intermitte nt Context:not taking drops as indicated not as much tearing as last year Piper Acosta OD [address], [place], [address], [facility] 03/30/2019 09:07:50 OBGyn Episode No OBEpisode recorded.
--- OUTSIDE RECORDS SUMMARY | 2024-09-13 14:25 | XMS_ITS | Clinical Summary ---
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 To help STAY asleep 30 capsule 1 4 Active ramelteon (Rozerem) 8 MG tabletIndicatio ns:Psychophysio logical insomnia Take 1 tablet (8 mg) by mouth at bedtime. 30 tablet 11 4 025 Active venlafaxine XR (Effexor XR) 75 MG 24 hr capsuleIndicati ons:Bipolar 1 disorder (CMS/HCC) Take 1 capsule (75 mg) by mouth 3 times daily. 180 capsule 4 Active venlafaxine XR (Effexor XR) 75 MG 24 hr capsuleIndicati ons:Bipolar 1 disorder (CMS/HCC) TAKE 1 CAPSULE (75 MG) BY MOUTH 3 TIMES DAILY. 270 capsule 4 Active cholecalciferol (Vitamin D-3) 50 MCG (1999 UT) tablet TAKE ONE TABLET BY MOUTH ONCE DAILY 90 tablet 2 4 Active levothyroxine (Synthroid, Levoxyl) 88 MCG tabletIndicatio ns:Hypothyroidi sm, unspecified type TAKE 1 TABLET (88 MCG) BY MOUTH BEFORE BREAKFAST. 90 tablet 5 025 Active buPROPion XL (Wellbutrin XL) 150 MG 24 hr tabletIndicatio ns:Bipolar 1 disorder (CMS/HCC) TAKE 3 TABLETS (450 MG) BY MOUTH IN THE MORNING. DO NOT CRUSH, CHEW, OR SPLIT. 270 tablet 5 025 Active carBAMazepine XR (TEGretol XR) 200 MG 12 hr tabletIndicatio ns:Bipolar 1 disorder (CMS/HCC) TAKE 2 TABS IN THE MORNING AND 3 TABS IN THE EVENING 150 tablet 1 5 Active carBAMazepine XR (TEGretol XR) 200 MG 12 hr tabletIndicatio ns:Bipolar 1 disorder (CMS/HCC) Take 2 tabs in am and 3 tabs in PM. 150 tablet 1 5 025 Discontinued Active Problems Problem Noted Date Diagnosed Date Stress incontinence in female 06/02/2023 Vitamin D deficiency 06/02/2023 06/02/2023 Class 2 obesity 06/02/2023 06/02/2023 Lipoma of face 03/28/2019 06/02/2023 Encounters Date Type Department Care Team Description 08/15/2024 Telephone [facility] [address] [place] [id number] Frida Cheng MD Prior Authorization (Bupropion ) 08/14/[address] [address] Frida Cheng MD Bipolar 1 disorder ([facility]/HCC) 07/18/[address] [address] Frida Cheng MD Bipolar 1 disorder ([facility]/HCC) 07/03/[address] [address] Frida Cheng MD Hypothyroidism, unspecified type from Last 3 Months Immunizations Name Administration Dates Next Due INFLUENZA VACCINE QUADRIVALE NT RECOMBINANT PRESERVATIVE FREE RIV4 03/19/2021 Influenza injectable quadriv alent IIV4 with preservative 01/29/2017 Influenza injectable quadriv alent preservative free 03/16/2023,01/16/2022,02/09/2020,2018,02/10/2018,02/27/2015 Influenza, IIV3, injectable 02/23/2019,0 02/10/2018,01/29/2017,2015,02/27/2015,03/23/2014,01/26/2012,0 01/26/2011,04/02/2010 Influenza, Unspecified 03/17/2009,2007,06/03/2006,2004 Influenza, seasonal, injecta ble, preservative free 03/23/2014 Novel [id number] 05/24/2009 TD (adult), 2 Lf tetanus tox oid, preservative free, adsorbed 07/02/2020 Tdap 10/02/2010,10/02/2010 Zoster, Recombinant 02/09/2020,12/07/2019 Social History Tobacco Use Types Packs/Day Years Used Date Smoking Tobacco: Never Smokeless Tobacco: Never Tobacco Cessation:Counseling Given: Not Answered Alcohol Use Standard Drinks/Week Comments Yes 0 (1 standard drink = 0.6 oz pur e alcohol) Social Comments No Sex and Gender Information Value Date Recorded Sex Assigned at Female 09/16/2022 2:19 PM EDT Legal Sex Female 5:37 PM EDT Gender Identity Female 06/13/2022 10:44 AM EST Sexual Orientation Choose not to disclose 2022 10:44 AM EST Last Filed Vital Signs Vital Sign Reading Time Taken Comments Blood Pressure 123/78 01/11/2024 3:54 PM EDT Pulse 83 01/11/2024 3:54 PM EDT Temperature 37.2 ??C (98.9 ??F) 01/11/2024 3:54 PM ED T Respiratory Rate 16 01/11/2024 3:54 PM EDT Oxygen Saturation 97% 10/20/2023 12:43 PM EDT Inhaled Oxygen Concentration - - Weight 89.4 kg (197 lb) 01/11/2024 3:54 PM EDT Height 157.5 cm (5' 2 ) 01/11/2024 3:54 PM EDT Body Mass Index 36.03 01/11/2024 3:54 PM EDT Plan of Treatment Health Maintenance Due Date Last Done Comments CT Colonography 1962 Colonoscopy 1962 Colorectal Cancer Screening 1962 Depression Screening 1962 FIT DNA/Cologuard 1962 FIT 1962 FOBT 1962 HIV Screening 1962 SDOH Screening 1962 Sigmoidoscopy 1962 Alcohol/Substance Use Screening 1974 Hepatitis C Screening 1980 Pap Smear 1983 Cervical Cancer Screening 1992 HPV/Cotest 1992 Pneumococcal Vaccine: 50+ Years (1 of 1 - PCV) 2012 Dental X-Ray: Full Mouth 08/06/2014 08/06/2011 Dental Oral Exam 10/22/2019 04/21/2019, , 02/11/2018, Additional history exists Mammogram 03/10/2021 03/10/2019, 02/15, 10/24/2007 Dental Prophylaxis 12/26/2021 06/27/2021, 1 06/22/2018, 08/12/2018, Additional history exists Dental X-Ray: Bitewings 06/28/2022 06/27/19, 02/11/2018, 03/26/2016, Additional history exists COVID-19 Vaccine ( season) 2024 02/23/2023, 03/17/2022, 04/09/2021, Additional history exists Influenza Vaccine (#1) 2024 , 01/16/2022, 03/19/2021, Additional history exists Tobacco Screening 06/02/2024 06/02/2023 DTaP/Tdap/Td Vaccines (4 - Td or Tdap) 07/02/2030 07/02/2020, 10/02/2010, 10/02/2010 RSV Patients and Patients Aged 60 years or older (1 - 1-dose 75+ series) 2037 Zoster Vaccines Completed 02/09/2020, 12/07/2019 HIB Vaccines Aged Out No longer eligi ble based on patient's age to complete this topic HPV Vaccines Aged Out No longer eligi ble based on patient's age to complete this topic Hepatitis A Vaccines Aged Out No long er eligible based on patient's age to complete this topic Hepatitis B Vaccines Aged Out No long er eligible based on patient's age to complete this topic IPV Vaccines Aged Out No longer eligi ble based on patient's age to complete this topic Meningococcal Vaccine Aged Out No jimmy gila eligible based on patient's age to complete this topic RSV under 20 months Aged Out No longe r eligible based on patient's age to complete this topic Rotavirus Vaccines Aged Out No longer eligible based on patient's age to complete this topic Procedures Procedure Name Priority Date/Time Associated Diagnosis Comments PROPHYLAXIS - ADULT Routine 06/27/2021 1 2:00 AM EST BITEWINGS - 4 RADIOGRAPHIC IMAGES Routine 06/27/2021 12:00 AM EST PERIODIC ORAL EVALUATION - ESTABLISHED PATIENT Routine 04/21/2019 12:00 AM EST INTRAORAL - COMPLETE SERIES OF RADIOGRAPHIC IMAGES Routine 08/06/2011 12:00 AM EDT from Last 3 Months or Most Recently Relevant to Health Maintenance Insurance [facility] CARE < 65 [place] [id number] [facility] MEDICAID STAND ADULT * Guarantor: Maile Fernandez Account Type Relation to Patient Date of Phone Billing Address Personal/Family Self [address] [place] [phone] Care Teams Injection Molding Machine Offbearer Relationship Specialty Start Date End Date Frida Cheng MD [address] [place] [address] PCP - General Family Medicine 04/28/22
== END 2024-09-13 14:02 | disposition home or self-care (01) ==
PROVIDERS: PCP Family Medicine; Visit Provider Physician Assistant
DX: N64.4 Mastodynia (principal)

== ENCOUNTER → 2024-09-13 13:06 | Outpatient (BNVA) | payer OTHER, SELFPAY | PROVIDERS: PCP Family Medicine; Visit Provider Physician Assistant | DX: Z13.89 Encounter for screening for other disorder (principal) | CPT/HCPCS: 93005; 99202 ==

== ENCOUNTER 2024-09-13 14:19 | Emergency (ER) | payer OTHER, SELFPAY ==
--- NOTE | ~2024-09-13 | XR_ITS ---
EXAMINATION: XR CHEST 2 VIEWS HISTORY: chest pain COMPARISON: There are no prior studies for comparison. FINDINGS: PA and lateral views of the chest are submitted. The lungs are expanded and clear. There is no pleural effusion, pneumothorax, or pulmonary vascular congestion. The heart is normal in size. The bones are intact. XR/XR chest 2V IMPRESSION: Clear lungs. Electronically signed by: Marcos Francisco MD 09/13/2024 03:00 PM EDT
--- NOTE | 2024-09-13 14:27 | ECG_ITS ---
Test Reason : abn ekg Blood Pressure : */* mmHG Vent. Rate : 65 BPM Atrial Rate : 65 BPM P-R Int : 164 ms QRS Dur : 92 ms QT Int : 430 ms P-R-T Axes : 43 17 32 degrees QTcB Int : 447 ms Normal sinus rhythm Normal ECG No previous ECGs available Referred By: Roro Can Electronically Signed By: Jose Miguel Spear
[2024-09-13 14:38] VITALS: BP 118/64; PULSE 68; RESP 18; TEMP 36.6; O2SAT 97; BMI 37.2
[2024-09-13 14:55] LABS: MANUAL DIFF FLAG NO
[2024-09-13 15:02] LABS: Basophils Absolute Auto 0.1 X10*3/uL (0.0-0.2); Basophils Percent Auto 1.2 % (0-2); Eosinophils Absolute Auto 0.2 X10*3/uL (0.0-0.4); Eosinophils Percent Auto 3.2 % (0-4); Hematocrit 39.2 % (37.0-47.0); Imm Gran Abs Auto 0.02 X10*3/uL (0.00-0.03); Imm Gran Pct Auto 0.3 % (0.0-0.4); Lymphocytes Absolute Auto 2.7 X10*3/uL (1.2-4.9); Lymphocytes Percent Auto 45.2 % (20-40); Mean Corpuscular HGB Conc 33.2 g/dl (31.0-35.0); Mean Corpuscular Hemoglobin 29.1 pg (27.0-33.0); Mean Corpuscular Volume 87.7 fL (80.0-98.0); Mean Platelet Volume 10.8 fL (9.4-12.3); Monocytes Absolute Auto 0.7 X10*3/uL (0.1-1.2); Monocytes Percent Auto 11.7 % (2-11); Neutrophils Absolute Auto 2.3 x10*3/uL (2.0-8.3); Neutrophils Percent Auto 38.4 % (45-73); Platelet Count 234 X10*3/uL (160-400); Red Blood Count 4.47 X10*6/uL (4.20-5.50); Red Cell Distribution Width 12.7 % (11.0-16.0); White Blood Count 5.9 X10*3/uL (4.8-10.8)
--- NOTE | 2024-09-13 15:05 | ED_ITS ---
"HPI - Chest Pain General Chief Complaint: Chest Pain Stated Complaint: Abnormal EKG Time Seen by Provider: 09/13/24 15:52 Source: patient Mode of arrival: ambulatory Limitations: no limitations History of Present Illness ED Provider: Lilia Genao PA-C HPI narrative: Patient is a 64 year old assigned female at with a history of hypothyroidism, bipolar disorder, and HLD presenting to the emergency department today with right sided rib pain with breathing. Patient states that over the last 6 days she has had right sided rib pain with deep breathing. Patient states that she was seen at an urgent care today where an EKG done and they were concerned it was abnormal so they sent her to be evaluated here in the ED. Patient denies any dizziness, lightheadedness, abdominal pain, nausea, vomiting, fever, chills, blurry vision, double vision, loss of vision, chest pain, difficulty breathing, shortness of breath, back pain, night sweats, pain with urination, increased urinary frequency, increased urinary urgency, blood in her urine or stool, syncope or a near syncopal episode, recent trauma or falls, bowel incontinence, bladder incontinence, or any other complaints at this time. Pain radiation: none Severity: mild Quality: sharp Exacerbating factors: inspiration Risk Factors Coronary artery disease risk factors: hyperlipidemia Related Data Home Medications ?Medication ?Instructions ?Recorded ?Confirmed carbamazepine 200 mg 0 mg PO DAILY PRN 01/09/22 01/01/23 tablet,extended release,12 hr carbamazepine 400 mg 400 mg PO BID 01/09/22 01/01/23 tablet,extended release,12 hr cholecalciferol (vitamin D3) 50 50 mcg PO DAILY 01/09/22 01/01/23 mcg (2,000 unit) tablet venlafaxine 75 mg capsule,extended 225 mg PO DAILY 01/09/22 01/01/23 release 24 hr bupropion HCl 150 mg 24 hr tablet, 150 mg PO QAM 11/27/22 01/01/23 extended release bupropion HCl 300 mg 24 hr tablet, 300 mg PO DAILY PRN 11/27/22 01/01/23 extended release levothyroxine 88 mcg tablet 88 mcg PO DAILY 09/13/24 Allergies Allergy/AdvReac Type Severity Reaction Status Date / Time zolpidem [From Ambien] Allergy Hives Verified 09/13/24 14:41 Review of Systems 2 Constitutional: Constitutional: Reports no additional constitutional complaints, Denies chills, Denies fever(s) and Denies night sweats Eyes: Eyes: Reports no additional eye complaints, Denies blurry vision, Denies change in vision, Denies diplopia, Denies eye discharge, Denies loss of vision and Denies eye pain ENT: Denies dizziness Cardiovascular: Cardiovascular: Reports no additional cardiovascular complaints, Denies lightheadedness, Denies Loss of Consciousness and Denies dyspnea Respiratory: Respiratory: Reports no additional respiratory complaints and Denies dyspnea Gastrointestinal: Gastrointestinal: Reports no additional gastrointestinal complaints, Denies abdominal pain, Denies melena, Denies hematochezia, Denies change in bowel habits and Denies change in stool character Genitourinary: Genitourinary: Denies hematuria, Denies urinary frequency, Denies dysuria, Denies urinary incontinence, Denies urinary hesitancy and Denies urinary urgency Musculoskeletal: Musculoskeletal: Reports no additional musculoskeletal complaints, Denies numbness and Denies tingling Comments: right sided rib pain with inspiration Neurologic: Denies dizziness, Denies loss of vision, Denies numbness and Denies tingling Psychiatric: Psychiatric: Reports no additional psychiatric complaints Endocrine: Endocrine: Reports no additional endocrine complaints Hematologic/Lymphatic: Hematologic/Lymphatic: Reports no additional hematologic/lymphatic complaints Allergic/Immunologic: Allergic/Immunologic: Reports no additional allergic/immunologic complaints [facility] Past Medical History Attestation statement: The following information was validated with the patient. Source: old records reviewed and nursing notes reviewed Medical History Hypothyroidism Bipolar 1 disorder Surgical History S/P excision of lipoma Social History Social History Housing: Apartment Patient Tobacco Use Status: Never used Tobacco e-Cigarette/Vaping Use: Never Used Second Hand Smoke Exposure: No Advance Directives: No Advance Directives Information Provided: Yes Do you have a plan to hurt others: No Plan service: No Current occupational status: disabled Current occupational exposures/hazards: No Cognitive needs: No Hearing needs: No Vision needs: Yes Physical Exam 2 Vital Signs: Vital Signs: Last Vital Signs Temp 98 F 09/13/24 16:56 Pulse 73 09/13/24 16:56 Resp 18 09/13/24 16:56 BP 124/64 09/13/24 16:56 Pulse Ox 98 09/13/24 16:56 O2 Del Method Room Air 09/13/24 16:56 BMI result Body Mass Index 37.2 Const: General: cooperative, no acute distress, alert and awake Nutritional Appearance: well nourished Orientation/consciousness: patient oriented x3 HEENT: Head: Yes normal to inspection and Yes atraumatic Ears: hearing grossly normal bilaterally and external ears normal General nose exam: Normal external nose present, no nasal discharge noted and no epistaxis Face and sinus: Yes normal facial exam, No abrasion and No laceration Mouth: Normal oral and palatal mucosa present, no drooling and no muffled voice Eyes: General: appearance normal, both eyes and all related structures P eriorbital: periorbital findings normal Eyelids: Yes eyelids normal C onjunctivae: conjunctivae normal Pupils: Equal, round and reactive pupils present EOM: EOMs intact bilaterally Neck: Neck: Yes normal visual inspection, Yes full ROM and Yes no lymphadenopathy Chest: Other: Performed a right breast examination with finding fastener in the room (Denise Montñao). Normal examination. No tenderness to palpation. Chest palpation & inspection: normal inspection of the chest Resp: Effort & Inspection: normal respiratory effort and able to speak in complete sentences Cardio: Rate: regular rate Rhythm: regular rhythm Skin: General skin exam: no rashes or lesions noted Neuro: General: patient oriented x3, moves all extremities and CN's II-XI intact bilaterally Cranial nerves: Yes Equal, round and reactive pupils present Cognition (Neuro): normal cognition Extrem: General: Yes normal to inspection, Yes full ROM and Yes capillary refill normal Psych: Appearance: grossly normal Mental Status: mental status grossly normal Affect: normal affect Attitude: cooperative Thought process: N ormal thought process present Thought content: Normal thought content present Insight: Good insight present (Psych) Course Course Course Narrative: This is a Rapid Medical Examination (RME) performed by Afua Can PA-C in triage. Full HPI, ROS, assessment and treatment plan per primary provider in the Main ED. 09/13/24 1505 CARTER Dael Hx: 64 yo female here for eval of right sided chest pain that began 1 week ago. pain worse w/ deep breathing. reports this occurs with stressful situations. 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 reports recent stress after having to give her dog away due to health problems. Seen at walk-in today, told she had an abnormal EKG. Advised to come to ED. PE/vitals: vital stable, well appearing Plan: labs, ekg, cxr Medications Administered Discontinued Medications Generic Name Dose Route Start Last Admin Trade Name Eveline PRN Reason Stop Dose Admin Ketorolac Tromethamine 15 mg 09/13/24 16:03 09/13/24 16:54 Ketorolac Tromethamine 15 Mg/Ml Vial IM 09/13/24 16:04 15 mg ONCE ONE Administration Medical Decision Making Medical Decision Making [facility] Narrative: Patient is a 64 year old assigned female at with a history of hypothyroidism, bipolar disorder, and HLD presenting to the emergency department today with right sided rib pain with breathing. Patient's physical exam was unremarkable. Patient's blood work was unremarkable. Patient's EKG was unremarkable. Patient's chest x-ray showed no acute process. Patient's clinical presentation is most consistent with pleurisy vs. costochondritis. I explained my physical exam findings as well as all test results to the patient. I answered all questions asked by the patient. I stressed the importance of the patient taking her medication as directed (either prescribed or as the over the counter packaging recommends). I stressed the importance of the patient following up with her primary care provider. I stressed the importance of the patient returning to the emergency department immediately if her symptoms were to worsen or if she were to develop any dizziness, shortness of breath, difficulty breathing, chest pain, blurry vision, loss of vision, nausea, vomiting, abdominal pain, fever, chills, back pain, or any other complaints. Patient verbalized agreement and understanding with this treatment plan and discharge. Differential Diagnosis Differential Diagnoses: The differential diagnosis associated with the presentation includes ACS NSTEMI STEMI Costochondritis Pleurisy Costochondritis Pneumothorax Shingles Admission/Observation Consideration of admission/observation: Escalation of care including admission/observation considered Patient would have been admitted to the hospital had her work up had any findings where hospital admission was appropriate and her clinical presentation warranted hospital admission. Lab Data [facility] Lab Attestation statement: I reviewed the patient's lab results. My interpretation of these results are in the [facility] Rationale portion of this note. 09/13/24 14:50 09/13/24 14:50 Labs: Lab Results 09/13/24 Range/Units 14:50 WBC 5.9 (4.8-10.8) X10*3/uL RBC 4.47 (4.20-5.50) X10*6/uL Hgb 13.0 (12.0-16.0) g/dl Hct 39.2 (37.0-47.0) % MCV 87.7 (80.0-98.0) fL MCH 29.1 (27.0-33.0) pg MCHC 33.2 (31.0-35.0) g/dl RDW 12.7 (11.0-16.0) % Plt Count 234 (160-400) X10*3/uL MPV 10.8 (9.4-12.3) fL Immature Gran % (Auto) 0.3 (0.0-0.4) % Neut % (Auto) 38.4 L (45-73) % Lymph % (Auto) 45.2 H (20-40) % Jay % (Auto) 11.7 H (2-11) % Eos % (Auto) 3.2 (0-4) % Baso % (Auto) 1.2 (0-2) % Lymph # (Auto) 2.7 (1.2-4.9) X10*3/uL Jay # (Auto) 0.7 (0.1-1.2) X10*3/uL Eos # (Auto) 0.2 (0.0-0.4) X10*3/uL Baso # (Auto) 0.1 (0.0-0.2) X10*3/uL Abs Immat Gran (auto) 0.02 (0.00-0.03) X10*3/uL Absolute Neuts (auto) 2.3 (2.0-8.3) x10*3/uL Absolute Nucleated RBC 0.000 (0.0-0.012) X10*3/uL Nucleated RBC % (auto) 0.0 (0.0-0.2) /100WBC Sodium 140 (135-145) mmol/L Potassium 3.8 (3.3-5.1) mmol/L Chloride 104 (96-108) mmol/L Carbon Dioxide 29 (22-29) mmol/L Anion Gap 11 L (12-20) BUN 19 H (9-16) mg/dL Creatinine 0.85 (0.5-1.4) mg/dL Estim Creat Clear Calc 69.8 Estimated GFR > 60 Random Glucose 73 (60-115) mg/dL Calcium 9.7 (8.4-10.2) mg/dL Magnesium 2.3 (1.6-2.6) mg/dL Total Bilirubin 0.3 (0.0-1.0) mg/dL AST 22 (5-31) U/L ALT 22 (0-31) U/L Alkaline Phosphatase 98 (39-117) U/L Troponin I High Sens < 2.7 (<3.5-17.0) ng/L Total Protein 7.2 (6.5-8.0) g/dL Albumin 4.2 (3.5-5.0) g/dL Lipase 21 (8-78) U/L Independent Interpretation I performed an independent interpretation of an: EKG and Plain X-Ray (Chest) Interpretation: My interpretation is in agreement with the radiologist's impression of this imaging study. L EXAMINATION: XR CHEST 2 VIEWS HISTORY: chest pain COMPARISON: There are no prior studies for comparison. FINDINGS: PA and lateral views of the chest are submitted. The lungs are expanded and clear. There is no pleural effusion, pneumothorax, or pulmonary vascular congestion. The heart is normal in size. The bones are intact. XR/XR chest 2V IMPRESSION: Clear lungs. Electronically signed by: Marcos Francisco MD 09/13/2024 03:00 PM EDT RP Dictated By: Marcos Francisco MD Signed By: Electronically signed by Marcos Francisco MD 09/13/24 1500 I independently interpreted this EKG and am in agreement with the below findings: Vent. Rate: 65 BPM Atrial Rate: 65 BPM P-R Int: 164 ms QRS Dur: 92 ms QT Int: 430 ms P-R-T Axes: 43 17 32 degrees QTcB Int: 447 ms Normal sinus rhythm Normal ECG No previous ECGs available DD/ 1433 Radiology Impression Discussion of test interpretation with radiology: I have reviewed the radiologist's reading. External Record Review External record reviewed: Inpatient record and Outpatient record Discharge Plan Discharge Clinical Impression: Acute costochondritis Patient Disposition: Home, Self-Care Instructions: Costochondritis (ED) Additional Instructions: Your work up today was reassuring that there is no emergent cause for your symptoms. Follow up with your primary care provider. Return to the emergency department immediately if your symptoms worsen or if you develop any numbness, tingling, dizziness, shortness of breath, difficulty breathing, chest pain, blurry vision, loss of vision, nausea, vomiting, abdominal pain, fever, chills, back pain, or any other complaints. Please see the information below about our Patient Portal. If you are not yet enrolled in the [facility] Patient Portal, you will receive an enrollment email invitation following your visit to any [facility] care setting. You may also self-enroll in the Patient Portal by visiting our website: [email or web address] The following information is required to access the Patient Portal: - Your [facility] Medical Record Number - Your personal home email address (must match what is in your electronic medical record, Registration staff can assist with this) - Name - Date of Capabilities of the Patient Portal: - Message some providers - View upcoming appointments - Access your health summary, medical history, and visit history - View current conditions and allergies - View procedure and lab results - View your medications, including guidelines, side effects, and precautions - Complete pre-appointment questionnaires requested by your provider - Ready summary reports of your office visits and procedures To access the Patient Portal Mobile [employer], follow these directions: - Search Traveler | VIP in the [employer] Store or Google Play Store - Download the [employer] - Search for [facility] - Enter your login/password Prescriptions: No Action carbamazepine 200 mg tablet extended release 12 hr 0 mg PO DAILY PRN venlafaxine 75 mg capsule,extended release 24hr 225 mg PO DAILY carbamazepine 400 mg tablet extended release 12 hr 400 mg PO BID cholecalciferol (vitamin D3) 50 mcg (2,000 unit) tablet 50 mcg PO DAILY bupropion HCl 300 mg tablet extended release 24 hr 300 mg PO DAILY PRN bupropion HCl 150 mg tablet extended release 24 hr 150 mg PO QAM levothyroxine 88 mcg tablet 88 mcg PO DAILY Referrals: Frida Cheng MD [Primary Care Provider] - Stand Alone Forms: Work/School Release Interventions: ED Discharge Assessment Last Done: 09/13/24 16:56 Print Language: Burundian"
[2024-09-13 15:10] LABS: Alanine Aminotransferase 22 U/L (0-31); Albumin Level 4.2 g/dL (3.5-5.0); Alkaline Phosphatase 98 U/L (39-117); Anion Gap 11 (12-20); Aspartate Amino Transferase 22 U/L (5-31); Bilirubin Total 0.3 mg/dL (0.0-1.0); Blood Urea Nitrogen 19 mg/dL (9-16); Calcium 9.7 mg/dL (8.4-10.2); Carbon Dioxide 29 mmol/L (22-29); Chloride 104 mmol/L (96-108); Creatinine Clr Calc Pharmacy 69.8; Estimated Glomerular Filt Rate > 60; Glucose Random 73 mg/dL (60-115); Lipase 21 U/L (8-78); Magnesium 2.3 mg/dL (1.6-2.6); Potassium 3.8 mmol/L (3.3-5.1); Sodium 140 mmol/L (135-145); Total Protein 7.2 g/dL (6.5-8.0)
[2024-09-13 15:18] LABS: Troponin-I High Sensitivity < 2.7 ng/L (<3.5-17.0)
[2024-09-13 16:23] VITALS: BP 124/64; PULSE 73; RESP 18; O2SAT 98
--- OUTSIDE RECORDS SUMMARY | 2024-09-13 16:33 | XMS_ITS | Clinical Summary ---
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 Role Phone Frida Cheng MD Primary Care Provider [phone] Allergies Active Allergy Reactions Criticality Noted Date [...] Type Department Care Team Description 08/15/2024 Telephone [facility] MEDICAL [address] [place] [id number] Frida Cheng MD Prior Authorization (Bupropion ) 08/14/[address] [address] Frida Cheng MD Bipolar 1 disorder ([facility]CC) 07/18/[address] [address] Frida Cheng MD Bipolar 1 disorder ([facility]) 07/03/[address] [address] Frida Cheng MD Hypothyroidism, unspecified type from Last 3 Months Immunizations Name Administration Dates Next Due INFLUENZA VACCINE QUADRIVALE NT RECOMBINANT PRESERVATIVE FREE RIV4 03/19/2021 Influenza injectable quadriv alent IIV4 with preservative 01/29/2017 Influenza injectable quadriv alent preservative free 03/16/2023,01/16/2022,02/09/2020,2018,02/10/2018,02/27/2015 Influenza, IIV3, injectable 02/23/2019,0 02/10/2018,01/29/2017,2015,02/27/2015,03/23/2014,01/26/2012,0 01/26/2011,04/02/2010 Influenza, Unspecified 03/17/2009,2007,06/03/2006,2004 Influenza, seasonal, injecta ble, preservative free 03/23/2014 Novel [id number] 05/24/2009 TD (adult), 2 Lf tetanus tox [...] Most Recently Relevant to Health Maintenance Insurance [facility] CARE < 65 [place] [id number] [facility] MEDICAID STAND ADULT * Guarantor: Maile Fernandez Account Type Relation to Patient Date of Phone Billing Address Personal/Family Self [address] [place] [phone] Care 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
[2024-09-13] MEDS: Ketorolac Tromethamine 15 MG/ML VIAL IM (16:54)
[2024-09-13 16:56] VITALS: BP 124/64; PULSE 73; RESP 18; TEMP 36.6; O2SAT 98
--- NOTE | 2024-09-13 16:58 | PC.NURSE ---
pt got im toradol and wanted to leave now, states she will wait in [facility] for 10 min and then leave from there
== END 2024-09-13 16:56 | disposition home or self-care (01) ==
PROVIDERS: Physician Assistant Medical; Emergency Provider Emergency Medicine Emergency Medical Services; PCP Family Medicine
DX: M94.0 Chondrocostal junction syndrome [Tietze] (principal); E78.5 Hyperlipidemia, unspecified; E03.9 Hypothyroidism, unspecified; Z79.899 Other long term (current) drug therapy
CPT/HCPCS: 36415; 71046; 80053; 83690; 83735; 84484; 85025; 93005; 96372; 99202; 99284; J1885

== ENCOUNTER → 2024-09-13 14:27 | Outpatient (BNV) | payer OTHER, SELFPAY | PROVIDERS: Emergency Provider Emergency Medicine Emergency Medical Services; PCP Family Medicine; Visit Provider Internal Medicine Cardiovascular Disease | DX: R94.31 Abnormal electrocardiogram [ECG] [EKG] (principal) | CPT/HCPCS: 93010 ==

== ENCOUNTER → 2024-09-13 14:45 | Outpatient (BNV) | payer OTHER, SELFPAY | PROVIDERS: Emergency Provider Emergency Medicine Emergency Medical Services; PCP Family Medicine; Visit Provider Radiology Diagnostic Radiology | DX: R07.9 Chest pain, unspecified (principal) | CPT/HCPCS: 71046 ==